=== PATIENT | female | born 1985 | race Caucasian/White ===

== ENCOUNTER 2019-07-04 11:27 | Emergency (ER) | payer MEDICAID, SELFPAY ==
[2019-07-04 11:42] VITALS: BP 80/47; PULSE 90; RESP 16; TEMP 36.3; O2SAT 100
--- NOTE | 2019-07-04 12:37 | ED.SKABFB ---
HPI - Skin/Abscess/Foreign Bdy General Chief complaint: Skin/Abscess/Foreign Body Stated complaint: Cat Bite Time Seen by Provider: 07/04/19 12:37 Source: patient, family and RN notes reviewed Mode of arrival: ambulatory Limitations: no limitations History of Present Illness HPI narrative: 34-year-old female who presents to express care with complaints of pain to her right hand due to cat punctures in the web space of her right hand between thumb and index finger with some surrounding redness and swelling around puncture sites, some small scratches also noted to web space between thumb and index finger, no drainage present. Family member accompanies patient today and states they don't know for sure the rabies immunization status of this animal. Patient states that her right hand is painful, was tearful when nursing staff washed wounds with [employer] solution. Patient states that her tetanus is more than 10 year old and patient will require update. Patient has no present fever, chills or sweats. MD complaint: other (cat bite) Onset (ago): day(s) (1) Tetanus up to date: no Location: R hand Severity: moderate Severity scale (1-10): 5 Quality: sharp Pain Consistency: constant Relieving factors: none Exacerbating factors: movement Associated symptoms: denies other symptoms Treatments prior to arrival: none Related Data Home Medications Medication Instructions Recorded Confirmed albuterol sulfate [Ventolin HFA] 2 puff INHALATION Q4-6H 07/04/19 07/06/19 ropinirole 0.5 mg PO TID 07/05/19 07/05/19 Allergies Allergy/AdvReac Type Severity Reaction Status Date / Time No Known Allergies Allergy Verified 07/06/19 16:49 Review of Systems Review of Systems: Narrative: CONSTITUTIONAL: Denies fever, chills, or sweats. EYES: Denies visual changes, redness, or discharge. ENT: Denies rhinorrhea, congestion, sore throat, or otalgia. CARDIOVASCULAR: Denies chest pain, palpitations, or edema. RESPIRATORY: Denies cough or dyspnea. GASTROINTESTINAL: Denies abdominal pain, nausea, vomiting, or diarrhea. GENITOURINARY: Denies dysuria or hematuria. SKIN: Denies rash or itching. Positive for cat bites and scratches to her right hand i web space between thumb and index finger MUSCULOSKELETAL: Denies back pain, joint pain, or myalgia. NEUROLOGIC: Denies headache, numbness, or weakness. PSYCHIATRIC: Denies anxiety or depression. All systems reviewed & are unremarkable except as noted in HPI and below PMFSH Past Medical History Medical History (Updated 07/07/19 @ 17:47 by Zachary Yang MD) Abscess of hand, right (~06/2019) Due to cat bite. S/P I&D. Asthma Human immunodeficiency virus Diagnosed in 2005. Restless leg syndrome Surgical History Surgical History (Updated 07/05/19 @ 13:52 by Alize Solorzano PA-C) Status post section Status post hysterectomy Status post tubal ligation Family History Family History Mother Hypertension Father Family history of coronary artery disease Social History Social History Social History: The patient lives in [place]. Her boyfriend has recently moved in. She has a 9-year-old and 13-year-old at home. She works at [employer], and she was just offered a job at [employer] working as an [employer]. She designates her mother, Bonnie Cantrell, as her surrogate decision maker and she wishes to be a full code. She drinks alcohol about 1 time a week, up to 1 bottle of wine. She Will smokes socially when drinking. She has a history of crack cocaine abuse and has been clean for about 12 years. She denies history of IV drug use. Spiritual care concerns: No Agree to blood products: No Exam Narrative: Exam Narrative: GENERAL: Well-appearing, well-nourished, and in no acute distress. HEAD: Normocephalic, atraumatic. EYES: PERRLA and
[2019-07-04] MEDS: TETANUS,DIPHTHERIA,AC PERTUSSIS ADULT 0.5 ML (ADACEL) IM (13:01)
== END 2019-07-04 13:18 | disposition home or self-care (01) ==
PROVIDERS: Emergency Provider Registered Nurse
DX: S61.431A Puncture wound without foreign body of right hand, initial encounter (principal); W55.01XA Bitten by cat, initial encounter; Y93.9 Activity, unspecified; Z23 Encounter for immunization; J45.909 Unspecified asthma, uncomplicated; G25.81 Restless legs syndrome; Z21 Asymptomatic human immunodeficiency virus [HIV] infection status
CPT/HCPCS: 90471; 90715; 99213; G0463

== ENCOUNTER 2019-07-05 09:23 | Inpatient (IN) | payer MEDICAID, SELFPAY ==
--- NOTE | ~2019-07-05 | XR_ITS ---
XR hand RT min 3V DATE: 07/05/2019 09:48 INDICATION: Cat bite. Cellulitis, soft tissue swelling of first and second digits TECHNIQUE: 3 views COMPARISON: None FINDINGS: There is soft tissue swelling of the right hand. No fracture or dislocation, periosteal usman ction or bone destruction. No radiopaque foreign body. IMPRESSION: Soft tissue swelling Reviewed, dictated and finalized at location B. RONMENTAL SAFETY SPECIALIST IMPRESSION: Soft tissue swelling
--- NOTE | 2019-07-05 09:37 | ED.SKABFB ---
HPI - Skin/Abscess/Foreign Bdy General Chief complaint: Skin/Abscess/Foreign Body Stated complaint: Cat bite to left hand Time Seen by Provider: 07/05/19 09:24 Source: patient Mode of arrival: ambulatory Limitations: no limitations History of Present Illness HPI narrative: This is a 34 year old female that presents to the ER for cat bite to right hand sustained 2 nights ago. Reports it was a feral cat in her neighborhood. Reports she was seen at the Urgent care yesterday and started on Augmentin. Reports she has taken two doses of this. Reports worsening of swelling and redness since yesterday which prompted her to be seen. Reports history of HIV and that she has been off of her medications for a couple months. Denies fever or drainage. Related Data Home Medications Medication Instructions Recorded Confirmed albuterol sulfate [Ventolin HFA] 2 puff INHALATION Q4-6H 07/04/19 07/04/19 Allergies Allergy/AdvReac Type Severity Reaction Status Date / Time No Known Allergies Allergy Verified 07/05/19 09:48 Review of Systems Review of Systems: Narrative: CONSTITUTIONAL: Denies fever SKIN: Reports erythema and warmth MUSCULOSKELETAL: Denies joint pain NEUROLOGIC: Denies numbness All systems reviewed & are unremarkable except as noted in HPI and below PMFSH Past Medical History Medical History (Updated 07/05/19 @ 11:32 by Maday Carreon PA-C) History of asthma History of HIV infection Social History Social History (Updated 07/05/19 @ 09:52 by Maday Carreon PA-C) Alcohol intake: current Substance use: never Gender identity (if verbalized by the patient): Female Exam Narrative: Exam Narrative: GENERAL: Well-appearing, well-nourished, and in no acute distress. HEAD: Normocephalic, atraumatic. EYES: EOMI. EXTREMITIES: Normal range of motion. Moderate edema, erythema and warmth of the right hand between the 1st and 2nd metacarpal bones with several small puncture bites in the area SKIN: Warm, dry, no rash. NEURO: No focal deficits. Alert and oriented x3. PSYCH: Normal mood and affect Course Consultations Consultation #1: Spoke with hospitalist about patient work-up who accepts admission Date: 07/05/19 Time: 11:32 Consultation #2: Spoke with Dr. Yang about patient and work-up who will consult. He would like coverage for MRSA to be added on Date: 07/05/19 Time: 11:32 Vital Signs Vital signs: Vital Signs Temperature 97.6 F 07/05/19 09:40 Pulse Rate 99 07/05/19 09:40 Respiratory Rate 18 07/05/19 09:40 Blood Pressure 115/86 07/05/19 09:40 Pulse Oximetry 97 07/05/19 09:40 Temperature 97.6 F 07/05/19 09:40 Pulse Rate 99 07/05/19 09:40 Respiratory Rate 18 07/05/19 09:40 Blood Pressure 115/86 07/05/19 09:40 Pulse Oximetry 97 07/05/19 09:40 MDM - Skin/Abscess/Foreign Bdy MDM Narrative Medical decision making narrative: Patient presents to the ER for cellulitis to right hand after a cat bite 2 nights ago. Patient is afebrile and nontoxic appearing. Moderate amount of erythema and edema to the right hand. She was updated on tetanus yesterday. She was also started on Augmentin without improvement. Patient's labs significant for mild elevation of inflammatory markers. Right hand x-ray shows soft tissue swelling. Due to patient's history of untreated HIV, she will be at risk for worsening infection. I think that it would be heaton to admit for IV antibiotics. Spoke with hospitalist about patient and work-up who accepts admission. Spoke with Dr. Yang who will consult. Currently trying to get a hold of infectious disease for consult as well Lab Data Attestation: I reviewed the patient's lab results. Result diagrams: 07/05/19 09:53 Labs: Lab Results 07/05/19 07/05/19 Range/Units 09:53 09:53 WBC 5.4 (4.5-10.0) K/mm3 RBC 4.17 L (4.2-5.4) M/mm3 Hgb 12.5 (12.0-15.0) g/dL Hct 35.7 L (37.0-47.0) % MCV 85.6 (80-100) fl MCH 30.0 (26-
[2019-07-05 09:40] VITALS: BP 115/86; PULSE 99; RESP 18; TEMP 36.4; O2SAT 97
[2019-07-05] MEDS: KETOROLAC 30 MG/ML VIAL (*BKC) IV PUSH (10:01)
[2019-07-05] MEDS: AMPICILLIN SULB 3 GM/NS 100 ML 3 GM/100 ML VIAL IVPB ×3 (10:03→23:47)
[2019-07-05 10:18] LABS: Basophils Percent Auto 0.4 % (0.2-1.2); Eosinophils Absolute Auto 0.2 K/mm3 (0-0.3); Eosinophils Percent Auto 3.5 % (0-4.4); Hematocrit 35.7 % (37.0-47.0); Hemoglobin 12.5 g/dL (12.0-15.0); Immature Granulocyte Absolute 0.01 K/mm3 (0.00-0.031); Immature Granulocyte Percent A 0.2 % (0-0.5); Lymphocytes Percent Auto 16.6 % (18.3-44.2); Mean Corpuscular Volume 85.6 fl (80-100); Mean Platelet Volume 9.9 fl (7.4-10.4); Monocytes Absolute Auto 0.4 K/mm3 (0.1-0.6); Monocytes Percent Auto 6.5 % (2.6-8.5); Neutrophils Absolute Auto 3.9 K/mm3 (1.3-6.7); Neutrophils Percent Auto 72.8 % (45.5-73.1); Platelet Count Result 151 k/mm3 (150-375); Red Blood Count 4.17 M/mm3 (4.2-5.4); Red Cell Distribution Width 11.2 % (11.5-14.5); White Blood Count 5.4 K/mm3 (4.5-10.0)
[2019-07-05 10:35] LABS: CRP 1.4 mg/dL (<1.0)
[2019-07-05 10:57] LABS: Erythrocyte Sedimentation Rate 41 mm/hr (0-20)
[2019-07-05 11:39] LABS: Alanine Aminotransferase 17 U/L (4-35); Albumin Level 4.1 g/dL (3.5-5.1); Alkaline Phosphatase 100 U/L (38-126); Aspartate Amino Transferase 23 U/L (14-36); Bilirubin,Total 0.4 mg/dL (0.2-1.3); Blood Urea Nitrogen 12 mg/dL (7-17); Calcium 9.2 mg/dL (8.4-10.2); Carbon Dioxide 24 mmol/L (22-30); Chloride 98 mmol/L (98-107); Estimated CRCL calculation 103 ml/min; Estimated Glomerular Filt Rate > 60; Glucose 97 mg/dL (65-105); Potassium 3.2 mmol/L (3.4-5.0); Sodium 138 mmol/L (137-145)
[2019-07-05 11:48] VITALS: BP 117/86; PULSE 80; RESP 18; O2SAT 99
[2019-07-05] MEDS: POTASSIUM CHLORIDE 20 MEQ PACKET (FOR LIQUID) 40 MEQ PO (12:22)
--- NOTE | 2019-07-05 12:35 | ADMGEN ---
This patient, Gayle Coles, was admitted to 3 [facility] Surg Room 307-01. Patient/family oriented to hospital policies and general routines including ID bracelet, bed and alarms, visiting hours, pain management, procedures, bathroom and other care routines, personal items, smoking policy, room service/diet, and visiting hours. Valuables list has been completed. Information on how to activate the Rapid Response Team has been discussed. Patient/Family are encouraged to report perceived risks to care and to ask questions if they do not understand what they are told or what they should do.
--- NOTE | 2019-07-05 12:45 | PM.IMHP ---
H&P: HPI History of Present Illness Chief complaint: Cat bite. Narrative: Gayle Coles is a 34 year old female with HIV, off medications for the last several months due to lapse in insurance, who presented to the emergency department earlier this morning from home for evaluation of a cat bite. Two nights ago, she was bit by a cat that she has had in her home for approximately 1 months time. She was seen at urgent care the following day and was prescribed Augmentin, which she states compliance. She has also been taking ibuprofen ?around the clock? due to tight and throbbing pain in the right hand. Her right hand continues to swell and is now more erythematous and warm, prompting her to come in for evaluation. She has not had a documented fever. Her appetite has been good and she denies nausea and vomiting. Review of Systems Review of Systems: Narrative: Twelve systems were reviewed with pertinent positives and negatives as per HPI. She has sweats, but goes on to state that she is hot a lot of the time. She has not had fever or chills. She reports year-round allergies, and chronic sinus issues for which she will occasionally use Nasonex. She has heartburn frequently for which she takes Tums. She has a Ventolin inhaler at home which she uses maybe every other day. Occasional nighttime symptoms. Except as documented, all other systems were reviewed and are negative. [facility] Past Medical History Medical History (Updated 07/05/19 @ 13:56 by Alize Solorzano PA-C) Asthma Human immunodeficiency virus Diagnosed in 2005. Restless leg syndrome Surgical History Surgical History (Updated 07/05/19 @ 13:52 by Alize Solorzano PA-C) Status post section Status post hysterectomy Status post tubal ligation Family History Family History Mother Hypertension Diabetes mellitus Father Family history of coronary artery disease Social History Social History (Updated 07/05/19 @ 13:54 by Alize Solorzano PA-C) Social History: The patient lives in [place]. Her boyfriend has recently moved in. She has a 9-year-old and 13-year-old at home. 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 She designates her mother, Bonnie Cantrell, as her surrogate decision maker and she wishes to be a full code. She drinks alcohol about 1 time a week, up to 1 bottle of wine. She Will smokes socially when drinking. She has a history of crack cocaine abuse and has been clean for about 12 years. She denies history of IV drug use. Spiritual care concerns: No Agree to blood products: No Meds Home Medications and Allergies Home Medications Medication Instructions Recorded Confirmed Type albuterol sulfate [Ventolin HFA] 2 puff INHALATION Q4-6H 07/04/19 07/05/19 History amoxicillin-pot clavulanate 1 tablet PO Q12H #20 tablet 07/04/19 07/05/19 Rx [Augmentin] ropinirole 0.5 mg PO TID 07/05/19 07/05/19 History Allergies Allergy/AdvReac Type Severity Reaction Status Date / Time No Known Allergies Allergy Verified 07/05/19 09:48 Vital Signs Vital Signs - 24 hr 07/05/19 09:40 07/05/19 11:48 Temperature 97.6 F Pulse Rate 99 80 Respiratory Rate 18 18 Blood Pressure 115/86 117/86 Pulse Oximetry 97 99 Exam Narrative: Exam Narrative: General: A well-developed, well-nourished female sitting up in bed no acute distress. HEENT: Normocephalic, atraumatic. PERRL, EOMI. Sclerae anicteric. Oral mucosa moist. Neck: Supple. Respiratory: Lungs are clear to auscultation bilaterally. Cardiovascular: Regular rate and rhythm with S1-S2. Gastrointestinal: Abdomen is soft, nontender, and nondistended with positive bowel sounds. Skin: Warm and dry. Right hand is edematous and erythematous surrounding several bite [place], mainly on the radial aspect of the pal
[2019-07-05 12:47] VITALS: BMI 28.5
--- NOTE | 2019-07-05 13:06 | WPDINFPN2 ---
Progress Note: A&P Assessment and Plan (1) Cellulitis: Qualifiers: Laterality: right Site of cellulitis: extremity Site of cellulitis of extremity: upper extremity Qualified Code(s): L03.113 - Cellulitis of right upper limb Code(s): L03.90 - Cellulitis, unspecified Status: Acute Assessment and Plan: 1. Cat bite cellulitis 2. HIV infection without AIDS REC AmpSulbactam and Vanc #1. Outpatient resumption of antiretrovirals (Leonefsey) once resource found for payment, I asked her to re-connect with [facility] ([facility]) for assistance. Subjective Date/time seen: 07/05/19 13:06 Objective Data Vital Signs Vital Signs: Vital Signs - 24 hr 07/05/19 09:40 07/05/19 11:48 Temperature 36.4 C Pulse Rate 99 80 Respiratory Rate 18 18 Blood Pressure 115/86 117/86 Pulse Oximetry 97 99 Intake/Output Intake/Output: Intake & Output 07/02/19 07/03/19 07/04/19 07/05/19 23:59 23:59 23:59 23:59 Intake Total 100 Balance 100 Meds/Results Medications: Active Medications Generic Name Dose Route Start Last Admin Trade Name Freq PRN Reason Stop Dose Admin Ampicillin Sodium/Sulbactam Sodium 3 gm in 100 mls @ 200 mls/hr 07/05/19 17:00 Unasyn 3 Gm/Ns 100 Ml IVPB Q6HR [facility] Vancomycin HCl 1,000 mg in 250 mls @ 250 mls/hr 07/06/19 00:00 Vancomycin 1,000 Mg/D5w 250 Ml IVPB Q12H [facility] Vancomycin HCl 1 each 07/05/19 11:30 Vancomycin Pharmacist To Dose IVPB PER PROTOCOL [facility] Radiology Results: ITS Impressions Hand X-Ray 07/05/19 09:49 IMPRESSION: Soft tissue swelling Labs Labs: Laboratory Results - last 24 hr 07/05/19 07/05/19 07/05/19 09:53 09:53 09:54 WBC 5.4 RBC 4.17 L Hgb 12.5 Hct 35.7 L MCV 85.6 MCH 30.0 MCHC 35.0 RDW 11.2 L Plt Count 151 MPV 9.9 Immature Gran % (Auto) 0.2 Neut % (Auto) 72.8 Lymph % (Auto) 16.6 L [place] % (Auto) 6.5 Eos % (Auto) 3.5 Baso % (Auto) 0.4 Lymph # (Auto) 0.90 [place] # (Auto) 0.4 Eos # (Auto) 0.2 Baso # (Auto) 0.0 Abs Immat Gran (auto) 0.01 Absolute Neuts (auto) 3.9 Absolute Nucleated RBC 0.0 Nucleated RBC % 0.0 ESR 41 H Sodium 138 Potassium 3.2 L Chloride 98 Carbon Dioxide 24 BUN 12 Creatinine 0.60 L Estim Creat Clear Calc 103 Estimated GFR > 60 Glucose 97 Calcium 9.2 Total Bilirubin 0.4 AST 23 ALT 17 Alkaline Phosphatase 100 C-Reactive Protein 1.4 H Total Protein 9.0 H Albumin 4.1
[2019-07-05 14:00] VITALS: BP 152/99; PULSE 96; RESP 16; TEMP 36.2; O2SAT 100
[2019-07-05] MEDS: ACETAMINOPHEN 325 MG TABLET 650 MG PO (14:47)
--- NOTE | 2019-07-05 15:40 | WPDCN ---
Assessment and Plan Additional Plan Her current acute problem appears to be cellulitis of the right hand due to cat bite punctures. I believe she is appropriately treated at this time with the IV antibiotics Unasyn and vancomycin. It does not appear that she needs surgical intervention. I am pleased to see Dr. lamar has been consulted due to her immune compromised condition. I will round on her tomorrow. We can feed her today and make her NPO after midnight. HPI Data of Consult Date/Time: 07/05/19 15:40 Requesting Physician: Blas Virgen MD Primary Care Provider: UNKNOWN,DOCTOR Consult Narrative Reason for consult: Infected cat bite right hand Narrative: Gayle Coles is a 34 year old female admitted today with worsening of redness, swelling and pain in her right hand after her cat bit her on the hand 2 times 2 days ago. She did go to express Care the following day and was started on Augmentin. She says she had taken 2 doses of that. She says today her hand is worse than it was yesterday. She has been started on Unasyn and vancomycin this admission. She received a Tdap yesterday in the emergency room. Her white count was 5.4. Her lymphocyte count was low at 16.6 and her sed rate was 41. She said she had not had a fever but she did feel hot a lot lately PMFSH Past Medical History Medical History Asthma Human immunodeficiency virus Diagnosed in 2005. Restless leg syndrome Surgical History Surgical History (Updated 07/05/19 @ 13:52 by Alize Solorzano PA-C) Status post section Status post hysterectomy Status post tubal ligation Family History Family History Mother Hypertension Diabetes mellitus Father Family history of coronary artery disease Social History Social History Social History: The patient lives in [place]. Her boyfriend has recently moved in. She has a 9-year-old and 13-year-old at home. 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 She designates her mother, Bonnie Cantrell, as her surrogate decision maker and she wishes to be a full code. She drinks alcohol about 1 time a week, up to 1 bottle of wine. She Will smokes socially when drinking. She has a history of crack cocaine abuse and has been clean for about 12 years. She denies history of IV drug use. Spiritual care concerns: No Agree to blood products: No Meds Home Medications and Allergies Home Medications Medication Instructions Recorded Confirmed Type albuterol sulfate [Ventolin HFA] 2 puff INHALATION Q4-6H 07/04/19 07/05/19 History amoxicillin-pot clavulanate 1 tablet PO Q12H #20 tablet 07/04/19 07/05/19 Rx [Augmentin] ropinirole 0.5 mg PO TID 07/05/19 07/05/19 History Allergies Allergy/AdvReac Type Severity Reaction Status Date / Time No Known Allergies Allergy Verified 07/05/19 09:48 Vital Signs Vital Signs - 24 hr 07/05/19 09:40 07/05/19 11:48 Temperature 36.4 C Pulse Rate 99 80 Respiratory Rate 18 18 Blood Pressure 115/86 117/86 Pulse Oximetry 97 99 Exam Const: Other: Patient is pleasant, alert and anxious to talk about her condition. She would seem to be generally healthy. She is guarding her right hand. Extrem: Other: Her right hand is moderately swollen. There is mild erythema over the dorsum.. She is most tender in the area of the thenar mass and 1st webspace on the palmar side. There is no drainage. There is no lymphangitis. She is able to flex and extend the index finger well and without pain. The index finger is not red. She also tolerates passive extension of the index finger. There is no mottling and no blisters. She is able to flex and extend the thumb but the thenar mass is involve
[2019-07-05] MEDS: ONDANSETRON INJ 4 MG/2 ML VIAL IV PUSH (18:59)
[2019-07-05 22:00] VITALS: BP 129/73; PULSE 80; RESP 16; TEMP 36.6; O2SAT 99
[2019-07-06] VITALS (12 sets, daily range): BP systolic 84–136; BP diastolic 45–91; PULSE 77–86; RESP 11–20; TEMP 36.3–37.1; O2SAT 93–100
[2019-07-06] MEDS: AMPICILLIN SULB 3 GM/NS 100 ML 3 GM/100 ML VIAL IVPB ×3 (05:48→20:24)
--- NOTE | 2019-07-06 06:18 | CONS_ITS ---
DATE OF CONSULTATION: REASON FOR CONSULTATION: Cat bite cellulitis. HISTORY OF PRESENT ILLNESS: The patient is a 34-year-old female who has had HIV infection for some 13 years with excellent control in the past. However, in the last 2 months, she has been without medication due to insurance non-reimbursement. She was on Atripla in the past, most recently Odefsey. She was in her usual state of health until 2 days before admission when she attempted to pet a feral cat, which then promptly bit her on the interdigital space between the first and 2nd digits of the right hand. There is also an injury to the palm proximally that she thinks was a bite also. She used peroxide and water for cleaning. One day before admission when she woke, she had pain in the same area. She went to Urgent Care and was started on Augmentin 875 mg b.i.d. However, today she had progressive pain and swelling in the same area along with elsewhere in the hand, and she was seen in the emergency room here. She was admitted and has been started now on ampicillin, sulbactam, and vancomycin. No fever, chills, sweats, previous injuries, previous surgeries, vascular compromise nor proximal pain. ALLERGIES: NONE KNOWN. PRESENT MEDICATIONS: No chronic medications otherwise. HABITS: She will smoke 1-2 cigarettes once a week and the same amount of alcohol. No marijuana and no illegal drugs. PAST MEDICAL HISTORY: Asthma. Otherwise negative. FAMILY HISTORY: Hypertension, diabetes, CAD. SOCIAL HISTORY: She works. Lives locally. . REVIEW OF SYSTEMS: Constitutional, skin, musculoskeletal, GI, respiratory otherwise negative. PHYSICAL EXAMINATION: GENERAL: This is a young female, who appears her actual age. No acute distress. VITAL SIGNS: Afebrile, 117/86, 80, 18, 99%. SKIN: No generalized rashes. Warm and dry. EENT: The pupils are equal and round. No conjunctival injection. No icterus. NECK: Without meningismus. LUNGS: Clear to auscultation and percussion. Excellent air entry. CARDIAC: Regular rate and rhythm. No murmur, gallop, or rub. Radial pulses 2+. ABDOMEN: Nontender, soft, nondistended. EXTREMITIES: No lower extremity edema, clubbing, or cyanosis. Over the aforementioned area of the right hand, she has edema, several superficial puncture wounds which are crusted and erythema and tenderness as well. She has limited range of motion of the first and 2nd digits. Normal range of motion, 4th and 5th. She has no lymphangitis. LABORATORY DATA: White count 5.4, hemoglobin 12.5, platelets are 151. She has a total lymphocyte count of 900. Potassium 3.2, creatinine 0.6, otherwise chemistry panel is normal. CRP 1.4. Protein is high at 9.0, typical of HIV infection. RADIOLOGY: Hand x-ray performed today, soft tissue swelling, otherwise normal. ASSESSMENT: 1. Cellulitis of the right hand after a cat bite, Pasteurella, other anaerobes or mammalian oral gretchen suspected. The patient's own cutaneous gretchen also potential pathogen, perhaps including methicillin-resistant Staphylococcus aureus. 2. Human immunodeficiency virus infection without acquired immune deficiency syndrome. Unable to take medication. I do not think she has clinically significant immunocompromise at the present time. RECOMMENDATIONS: 1. 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 2. Agree with present antibiotics day 1. 3. Dr. Yang to see as well for any needed surgical intervention. Thank you very much for asking me to see her. SERGIO HINES M.D. TEMPLATE STORAGE CLERK
[2019-07-06 06:21] LABS: Basophils Percent Auto 0.5 % (0.2-1.2); Eosinophils Absolute Auto 0.3 K/mm3 (0-0.3); Hematocrit 34.4 % (37.0-47.0); Hemoglobin 11.6 g/dL (12.0-15.0); Immature Granulocyte Absolute 0.01 K/mm3 (0.00-0.031); Immature Granulocyte Percent A 0.3 % (0-0.5); Lymphocytes Absolute Auto 0.91 K/mm3 (0.9-3.2); Lymphocytes Percent Auto 24.4 % (18.3-44.2); Mean Corpuscular HGB Conc 33.7 g/dl (32-36); Mean Corpuscular Hemoglobin 29.6 pg (26-34); Mean Corpuscular Volume 87.8 fl (80-100); Mean Platelet Volume 10.6 fl (7.4-10.4); Monocytes Absolute Auto 0.3 K/mm3 (0.1-0.6); Monocytes Percent Auto 6.7 % (2.6-8.5); Neutrophils Absolute Auto 2.3 K/mm3 (1.3-6.7); Neutrophils Percent Auto 61.1 % (45.5-73.1); Platelet Count Result 132 k/mm3 (150-375); Red Blood Count 3.92 M/mm3 (4.2-5.4); Red Cell Distribution Width 11.4 % (11.5-14.5); White Blood Count 3.7 K/mm3 (4.5-10.0)
[2019-07-06 06:37] LABS: Blood Urea Nitrogen 8 mg/dL (7-17); Calcium 8.2 mg/dL (8.4-10.2); Carbon Dioxide 25 mmol/L (22-30); Chloride 104 mmol/L (98-107); Estimated CRCL calculation 124 ml/min; Estimated Glomerular Filt Rate > 60; Glucose 101 mg/dL (65-105); Magnesium 1.6 mg/dL (1.6-2.3); Potassium 3.8 mmol/L (3.4-5.0); Sodium 137 mmol/L (137-145)
--- NOTE | 2019-07-06 08:37 | WPDPN ---
Progress Note: A&P Additional Plan May be improving. Will keep NPO and reevaluate around Noon. Exam Narrative: Exam Narrative: She has just woken up and was moving slowly. May not have had hand elevated all night. Very little erythema except locally in the palmar first web space in the vacinity lof the puncture wounds. Tolerates passive extension of thumb and index. ( Likely no tenosynovitis.) Moves all digits sluggishly this morning. No purulent drainage. WBC 3.7. Objective Data Vital Signs Vital Signs: Vital Signs - 24 hr 07/05/19 09:40 07/05/19 11:48 07/05/19 14:00 Temperature 36.4 C 36.2 C L Pulse Rate 99 80 96 Respiratory Rate 18 18 16 Blood Pressure 115/86 117/86 152/99 H Pulse Oximetry 97 99 100 07/05/19 22:00 07/06/19 06:00 Temperature 36.6 C 36.6 C Pulse Rate 80 77 Respiratory Rate 16 20 Blood Pressure 129/73 136/76 Pulse Oximetry 99 98 Intake/Output Intake/Output: Intake & Output 07/03/19 07/04/19 07/05/19 07/06/19 23:59 23:59 23:59 23:59 Intake Total 970 700 Output Total 300 600 Balance 670 100 Meds/Results Medications: Active Medications Generic Name Dose Route Start Last Admin Trade Name Freq PRN Reason Stop Dose Admin Acetaminophen 650 mg 07/05/19 14:01 07/05/19 14:47 Tylenol Tablet PO 650 mg Q6H PRN Administration Mild Pain (1-3) or Fever Hydrocodone Bitart/Acetaminophen 1 tab 07/05/19 22:10 07/06/19 08:16 [place] 5-325 Mg PO 1 tab Q6H PRN Administration Pain Rated 4-6 Albuterol 2 puff 07/05/19 14:55 Proventil Hfa INHALATION Q4-6H PRN Shortness Of Breath Or Wheezing Ampicillin Sodium/Sulbactam Sodium 3 gm in 100 mls @ 200 mls/hr 07/05/19 17:00 07/06/19 06:18 Unasyn 3 Gm/Ns 100 Ml IVPB Infused Q6HR LEXIE Infusion Vancomycin HCl 1,000 mg in 250 mls @ 250 mls/hr 07/06/19 00:00 07/06/19 01:34 Vancomycin 1,000 Mg/D5w 250 Ml IVPB Infused Q12H LEXIE Infusion Ondansetron HCl 4 mg 07/05/19 18:17 07/05/19 18:59 Zofran Inj IV PUSH 4 mg Q6H PRN Administration Nausea And Vomiting Ropinirole HCl 0.5 mg 07/05/19 17:00 07/06/19 08:14 Ropinirole Hcl PO 0.5 mg TID LEXIE Administration Radiology Results: ITS Impressions Hand X-Ray 07/05/19 09:49 IMPRESSION: Soft tissue swelling Labs Labs: Laboratory Results - last 24 hr 07/05/19 07/05/19 07/05/19 09:53 09:53 09:54 WBC 5.4 RBC 4.17 L Hgb 12.5 Hct 35.7 L MCV 85.6 MCH 30.0 MCHC 35.0 RDW 11.2 L Plt Count 151 MPV 9.9 Immature Gran % (Auto) 0.2 Neut % (Auto) 72.8 Lymph % (Auto) 16.6 L [place] % (Auto) 6.5 Eos % (Auto) 3.5 Baso % (Auto) 0.4 Lymph # (Auto) 0.90 [place] # (Auto) 0.4 Eos # (Auto) 0.2 Baso # (Auto) 0.0 Abs Immat Gran (auto) 0.01 Absolute Neuts (auto) 3.9 Absolute Nucleated RBC 0.0 Nucleated RBC % 0.0 ESR 41 H Sodium 138 Potassium 3.2 L Chloride 98 Carbon Dioxide 24 BUN 12 Creatinine 0.60 L Estim Creat Clear Calc 103 Estimated GFR > 60 Glucose 97 Calcium 9.2 Magnesium Total Bilirubin 0.4 AST 23 ALT 17 Alkaline Phosphatase 100 C-Reactive Protein 1.4 H Total Protein 9.0 H Albumin 4.1 07/06/19 07/06/19 05:56 05:56 WBC 3.7 L RBC 3.92 L Hgb 11.6 L Hct 34.4 L MCV 87.8 MCH 29.6 MCHC 33.7 RDW 11.4 L Plt Count 132 L MPV 10.6 H Immature Gran % (Auto) 0.3 Neut % (Auto) 61.1 Lymph % (Auto) 24.4 [place] % (Auto) 6.7 Eos % (Auto) 7.0 H Baso % (Auto) 0.5 Lymph # (Auto) 0.91 [place] # (Auto) 0.3 Eos # (Auto) 0.3 Baso # (Auto) 0.0 Abs Immat Gran (auto) 0.01 Absolute Neuts (auto) 2.3 Absolute Nucleated RBC 0.0 Nucleated RBC % 0.0 ESR Sodium 137 Potassium 3.8 Chloride 104 Carbon Dioxide 25 BUN 8 Creatinine 0.50 L Estim Creat Clear Calc 124 Estimated GFR > 60 Glucose 101 Calcium 8.2 L Magnesi
[2019-07-06] MEDS: ONDANSETRON INJ 4 MG/2 ML VIAL IV PUSH ×3 (09:31→20:22)
--- NOTE | 2019-07-06 13:00 | P.PN_ITS ---
Progress Note: A&P Additional Plan Have scheduled time in the OR this evening for I&D of right hand. Explained the pros and cons. Worst complications would probably be from general anesthesia, but she might also sustain a cutaneous nerve injury or an unsightly scar from the incision. Wound will be left open. She gives her consent. Objective Data Vital Signs Vital Signs: Vital Signs - 24 hr 07/05/19 14:00 07/05/19 22:00 07/06/19 06:00 Temperature 36.2 C L 36.6 C 36.6 C Pulse Rate 96 80 77 Respiratory Rate 16 16 20 Blood Pressure 152/99 H 129/73 136/76 Pulse Oximetry 100 99 98 Intake/Output Intake/Output: Intake & Output 07/03/19 07/04/19 07/05/19 07/06/19 23:59 23:59 23:59 23:59 Intake Total 970 700 Output Total 300 600 Balance 670 100 Meds/Results Medications: Active Medications Generic Name Dose Route Start Last Admin Trade Name Freq PRN Reason Stop Dose Admin Acetaminophen 650 mg 07/05/19 14:01 07/05/19 14:47 Tylenol Tablet PO 650 mg Q6H PRN Administration Mild Pain (1-3) or Fever Hydrocodone Bitart/Acetaminophen 1 tab 07/05/19 22:10 07/06/19 08:16 [place] 5-325 Mg PO 1 tab Q6H PRN Administration Pain Rated 4-6 Albuterol 2 puff 07/05/19 14:55 Proventil Hfa INHALATION Q4-6H PRN Shortness Of Breath Or Wheezing Ampicillin Sodium/Sulbactam Sodium 3 gm in 100 mls @ 200 mls/hr 07/05/19 17:00 07/06/19 06:18 Unasyn 3 Gm/Ns 100 Ml IVPB Infused Q6HR LEXIE Infusion Vancomycin HCl 1,000 mg in 250 mls @ 250 mls/hr 07/06/19 00:00 07/06/19 01:34 Vancomycin 1,000 Mg/D5w 250 Ml IVPB Infused Q12H LEXIE Infusion Ondansetron HCl 4 mg 07/05/19 18:17 07/06/19 09:31 Zofran Inj IV PUSH 4 mg Q6H PRN Administration Nausea And Vomiting Ropinirole HCl 0.5 mg 07/05/19 17:00 07/06/19 08:14 Ropinirole Hcl PO 0.5 mg TID LEXIE Administration Radiology Results: ITS Impressions Hand X-Ray 07/05/19 09:49 IMPRESSION: Soft tissue swelling Labs Labs: Laboratory Results - last 24 hr 07/06/19 07/06/19 05:56 05:56 WBC 3.7 L RBC 3.92 L Hgb 11.6 L Hct 34.4 L MCV 87.8 MCH 29.6 MCHC 33.7 RDW 11.4 L Plt Count 132 L MPV 10.6 H Immature Gran % (Auto) 0.3 Neut % (Auto) 61.1 Lymph % (Auto) 24.4 [place] % (Auto) 6.7 Eos % (Auto) 7.0 H Baso % (Auto) 0.5 Lymph # (Auto) 0.91 [place] # (Auto) 0.3 Eos # (Auto) 0.3 Baso # (Auto) 0.0 Abs Immat Gran (auto) 0.01 Absolute Neuts (auto) 2.3 Absolute Nucleated RBC 0.0 Nucleated RBC % 0.0 Sodium 137 Potassium 3.8 Chloride 104 Carbon Dioxide 25 BUN 8 Creatinine 0.50 L Estim Creat Clear Calc 124 Estimated GFR > 60 Glucose 101 Calcium 8.2 L Magnesium 1.6
--- NOTE | 2019-07-06 15:20 | PM.IMPN ---
Progress Note: A&P Assessment and Plan (1) Cellulitis of right hand: Code(s): L03.113 - Cellulitis of right upper limb Status: Acute Assessment and Plan: -----continue vancomycin and Unasyn. I believe Dr. Yang is taking her for surgery later today. Patient is neurovascularly intact and does not have any systemic symptoms at this time. White blood cell count slightly decreased but could be due to her chronic HIV. (2) Hypokalemia: Code(s): E87.6 - Hypokalemia Status: Acute Assessment and Plan: -----resolved (3) Human immunodeficiency virus: Code(s): B20 - Human immunodeficiency virus [HIV] disease Status: Acute Assessment and Plan: ----- She has been off her medications for about 2 months due to lapse in insurance. She was encouraged to get in touch with [facility] AIDS project for help. Dr. lamar has seen her and his note was reviewed. Time Spent With Patient Time with patient: 25 - 35 minutes Subjective Date/time seen: 07/06/19 15:20 Interval history: Pt is a 34-year-old female here cellulitis due to cat bite on her right hand. Patient was seen today and states that the infection seems to be worsening and her hand is more swollen than it was earlier today. She has not had any fevers or chills since being here in the hospital but she feels weak. She is not eating or drinking because she has surgery later today. She has been having some nausea. pt denies vomiting, fevers, chills, constipation, diarrhea, chest pain, sob, or abdominal pain. Review of Systems Review of Systems: All systems reviewed & are unremarkable except as noted in HPI and below Exam Narrative: Exam Narrative: General: Well developed well nourished patient resting comfortably in bed in NAD HEENT: normocephalic Neck: supple Neuro: Alert and oriented x4 CV:RRR Resp:CTA Abd: Soft, non distended. No pain to palpation. Positive bowel sounds Extremities: Right hand erythematous and swollen. Radial pulses intact. No swelling, erythema, or pain to palpation to the lower extremities. Objective Data Vital Signs Vital Signs: Vital Signs - 24 hr 07/05/19 22:00 07/06/19 06:00 Temperature 97.8 F 97.9 F Pulse Rate 80 77 Respiratory Rate 16 20 Blood Pressure 129/73 136/76 Pulse Oximetry 99 98 Intake/Output Intake/Output: Intake & Output 07/03/19 07/04/19 07/05/19 07/06/19 23:59 23:59 23:59 23:59 Intake Total 970 800 Output Total 300 600 Balance 670 200 Meds/Results Medications: Active Medications Generic Name Dose Route Start Last Admin Trade Name Freq PRN Reason Stop Dose Admin Acetaminophen 650 mg 07/05/19 14:01 07/05/19 14:47 Tylenol Tablet PO 650 mg Q6H PRN Administration Mild Pain (1-3) or Fever Hydrocodone Bitart/Acetaminophen 1 tab 07/05/19 22:10 07/06/19 14:30 [place] 5-325 Mg PO 1 tab Q6H PRN Administration Pain Rated 4-6 Albuterol 2 puff 07/05/19 14:55 Proventil Hfa INHALATION Q4-6H PRN Shortness Of Breath Or Wheezing Ampicillin Sodium/Sulbactam Sodium 3 gm in 100 mls @ 200 mls/hr 07/05/19 17:00 07/06/19 15:00 Unasyn 3 Gm/Ns 100 Ml IVPB Infused Q6HR LEXIE Infusion Vancomycin HCl 1,000 mg in 250 mls @ 250 mls/hr 07/06/19 00:00 07/06/19 15:07 Vancomycin 1,000 Mg/D5w 250 Ml IVPB 250 mls/hr Q12H LEXIE Administration Ondansetron HCl 4 mg 07/05/19 18:17 07/06/19 09:31 Zofran Inj IV PUSH 4 mg Q6H PRN Administration Nausea And Vomiting Ropinirole HCl 0.5 mg 07/05/19 17:00 07/06/19 14:32 Ropinirole Hcl PO 0.5 mg TID LEXIE Administration Radiology Results: ITS Impressions Hand X-Ray 07/05/19 09:49 IMPRESSION: Soft tissue swelling Labs Labs: Laboratory Results - last 24 hr 07/06/19 07/06/19 05:56 05:56 WBC 3.7 L RBC 3.92 L Hgb 11.6 L Hct 34.4 L MCV 87.8 MCH 29.6 MCHC 33.7 RDW 11.4 L Plt Count 132 L MP
--- NOTE | 2019-07-06 15:46 | WPDINFPN2 ---
Progress Note: A&P Assessment and Plan (1) Cellulitis: Qualifiers: Laterality: right Site of cellulitis: extremity Site of cellulitis of extremity: upper extremity Qualified Code(s): L03.113 - Cellulitis of right upper limb Code(s): L03.90 - Cellulitis, unspecified Status: Acute Assessment and Plan: 1. Cat bite cellulitis, stable exam, no systemic infection 2. HIV infection without AIDS 3. Mild eosinophilia, perhaps due to HIV itself (not uncommon) REC AmpSulbactam and Vanc #2. Outpatient resumption of antiretrovirals ([place]) once resource found for payment. Get MRSA screen and stop vanc if screen and intraoperative culture show no MRSA. Subjective Date/time seen: 07/06/19 15:46 Interval history: hand pain and limited ROm still Exam Narrative: Exam Narrative: afebrile Const: General: no acute distress Eyes: General: appearance normal, both eyes and all related structures Resp: Effort & Inspection: normal respiratory effort Auscultation: clear to auscultation bilaterally Cardio: Rate: regular rate Rhythm: regular rhythm Heart sounds: Gallop heart sound present GI: Inspection: non-distended GI Palp: Yes Soft to palpation Skin: General skin exam: normal color Extrem: Right upper extremity: Extremity exam: right hand normal capillary refill, tendon exam abnormal, tenderness, abnormal ROM of finger, warmth, swelling and puncture wound Objective Data Vital Signs Vital Signs: Vital Signs - 24 hr 07/05/19 22:00 07/06/19 06:00 Temperature 36.6 C 36.6 C Pulse Rate 80 77 Respiratory Rate 16 20 Blood Pressure 129/73 136/76 Pulse Oximetry 99 98 Intake/Output Intake/Output: Intake & Output 07/03/19 07/04/19 07/05/19 07/06/19 23:59 23:59 23:59 23:59 Intake Total 970 800 Output Total 300 600 Balance 670 200 Meds/Results Medications: Active Medications Generic Name Dose Route Start Last Admin Trade Name Freq PRN Reason Stop Dose Admin Acetaminophen 650 mg 07/05/19 14:01 07/05/19 14:47 Tylenol Tablet PO 650 mg Q6H PRN Administration Mild Pain (1-3) or Fever Hydrocodone Bitart/Acetaminophen 1 tab 07/05/19 22:10 07/06/19 14:30 [place] 5-325 Mg PO 1 tab Q6H PRN Administration Pain Rated 4-6 Albuterol 2 puff 07/05/19 14:55 Proventil Hfa INHALATION Q4-6H PRN Shortness Of Breath Or Wheezing Ampicillin Sodium/Sulbactam Sodium 3 gm in 100 mls @ 200 mls/hr 07/05/19 17:00 07/06/19 15:00 Unasyn 3 Gm/Ns 100 Ml IVPB Infused Q6HR LEXIE Infusion Vancomycin HCl 1,000 mg in 250 mls @ 250 mls/hr 07/06/19 00:00 07/06/19 15:07 Vancomycin 1,000 Mg/D5w 250 Ml IVPB 250 mls/hr Q12H LEXIE Administration Ondansetron HCl 4 mg 07/05/19 18:17 07/06/19 09:31 Zofran Inj IV PUSH 4 mg Q6H PRN Administration Nausea And Vomiting Ropinirole HCl 0.5 mg 07/05/19 17:00 07/06/19 14:32 Ropinirole Hcl PO 0.5 mg TID LEXIE Administration Radiology Results: ITS Impressions Hand X-Ray 07/05/19 09:49 IMPRESSION: Soft tissue swelling Labs Labs: Laboratory Results - last 24 hr 07/06/19 07/06/19 05:56 05:56 WBC 3.7 L RBC 3.92 L Hgb 11.6 L Hct 34.4 L MCV 87.8 MCH 29.6 MCHC 33.7 RDW 11.4 L Plt Count 132 L MPV 10.6 H Immature Gran % (Auto) 0.3 Neut % (Auto) 61.1 Lymph % (Auto) 24.4 [place] % (Auto) 6.7 Eos % (Auto) 7.0 H Baso % (Auto) 0.5 Lymph # (Auto) 0.91 [place] # (Auto) 0.3 Eos # (Auto) 0.3 Baso # (Auto) 0.0 Abs Immat Gran (auto) 0.01 Absolute Neuts (auto) 2.3 Absolute Nucleated RBC 0.0 Nucleated RBC % 0.0 Sodium 137 Potassium 3.8 Chloride 104 Carbon Dioxide 25 BUN 8 Creatinine 0.50 L Estim Creat Clear Calc 124 Estimated GFR > 60 Glucose 101 Calcium 8.2 L Magnesium 1.6
--- NOTE | 2019-07-06 16:52 | WPDANESEPPF ---
Anes - Initial Pre Proc Eval Procedure: Operation Date: 07/06/19 17:00 Proposed Procedures p Incision and Drainage abscess right hand - Zachary Yang MD Date/Time: 07/06/19 16:52 Surgeon: Arely Phillips PA-C Pre Op Diagnosis: Cat bite. Patient Data Age: 34 Gender: F Height: 1.57 m Weight: 70.8 kg Last Vital Signs Temp 37.1 C 07/06/19 16:31 Pulse 81 07/06/19 16:31 Resp 14 07/06/19 16:31 BP 122/91 H 07/06/19 16:31 Pulse Ox 99 07/06/19 16:31 Allergies Allergy/AdvReac Type Severity Reaction Status Date / Time No Known Allergies Allergy Verified 07/06/19 16:49 Home Medications Medication Instructions Recorded Confirmed Type albuterol sulfate [Ventolin HFA] 2 puff INHALATION Q4-6H 07/04/19 07/06/19 History amoxicillin-pot clavulanate 1 tablet PO Q12H #20 tablet 07/04/19 07/05/19 Rx [Augmentin] ropinirole 0.5 mg PO TID 07/05/19 07/05/19 History Laboratory Tests 07/06/19 07/06/19 05:56 05:56 WBC 3.7 K/mm3 L K/mm3 (4.5-10.0) RBC 3.92 M/mm3 L M/mm3 (4.2-5.4) Hgb 11.6 g/dL L g/dL (12.0-15.0) Hct 34.4 % L % (37.0-47.0) MCV 87.8 fl fl (80-100) MCH 29.6 pg pg (26-34) MCHC 33.7 g/dl g/dl (32-36) RDW 11.4 % L % (11.5-14.5) Plt Count 132 k/mm3 L k/mm3 (150-375) MPV 10.6 fl H fl (7.4-10.4) Immature Gran % (Auto) 0.3 % % (0-0.5) Neut % (Auto) 61.1 % % (45.5-73.1) Lymph % (Auto) 24.4 % % (18.3-44.2) [place] % (Auto) 6.7 % % (2.6-8.5) Eos % (Auto) 7.0 % H % (0-4.4) Baso % (Auto) 0.5 % % (0.2-1.2) Lymph # (Auto) 0.91 K/mm3 K/mm3 (0.9-3.2) [place] # (Auto) 0.3 K/mm3 K/mm3 (0.1-0.6) Eos # (Auto) 0.3 K/mm3 K/mm3 (0-0.3) Baso # (Auto) 0.0 K/mm3 K/mm3 (0.0-0.1) Abs Immat Gran (auto) 0.01 K/mm3 K/mm3 (0.00-0.031) Absolute Neuts (auto) 2.3 K/mm3 K/mm3 (1.3-6.7) Absolute Nucleated RBC 0.0 K/mm3 K/mm3 (0.0-0.012) Nucleated RBC % 0.0 % % (0.0-0.2) Sodium 137 mmol/L mmol/L (137-145) Potassium 3.8 mmol/L mmol/L (3.4-5.0) Chloride 104 mmol/L mmol/L (98-107) Carbon Dioxide 25 mmol/L mmol/L (22-30) BUN 8 mg/dL mg/dL (7-17) Creatinine 0.50 mg/dL L mg/dL (0.7-1.0) Estim Creat Clear Calc 124 ml/min ml/min Estimated GFR > 60 (59 - ) Glucose 101 mg/dL mg/dL (65-105) Calcium 8.2 mg/dL L mg/dL (8.4-10.2) Magnesium 1.6 mg/dL mg/dL (1.6-2.3) Patient hx anesthesia problems: post op nausea/vomiting Family hx anesthesia problems: none PMFSH Past Medical History Medical History Asthma Human immunodeficiency virus Diagnosed in 2005. Restless leg syndrome Surgical History Surgical History (Updated 07/05/19 @ 13:52 by Alize Solorzano PA-C) Status post section Status post hysterectomy Status post tubal ligation Family History Family History Mother Hypertension Diabetes mellitus Father Family history of coronary artery disease Social History Social History Social History: The patient lives in [place]. Her boyfriend has recently moved in. She has a 9-year-old and 13-year-old at home. She works at [employer], and she was just offered a job at [employer] working as an [employer]. She designates her mother, Bonnie Cantrell, as her surrogate decision maker and she wishes to be a full code. She drinks alcohol about 1 time a week, up to 1 bottle of wine. She Will smokes socially when drinking. She has a history of crack cocaine abuse and has been clean for about 12 years. She denies history of IV drug use. Spiritual care concerns: No Agree to blood products: No Ane
[2019-07-06] MEDS: LACTATED RINGERS 1,000 ML 30 ML IV CONT (17:01)
[2019-07-06] MEDS: SCOPOLAMINE 1.5 MG PATCH TRANSDERM (17:11)
[2019-07-06] MEDS: FAMOTIDINE 20 MG/2 ML VIAL IV PUSH (17:11)
--- NOTE | 2019-07-06 17:30 | PM.OP ---
Procedure Note - Brief Procedure Note - Brief Date of procedure: 07/06/19 Pre-op diagnosis: Cat bite. Abscess of right hand . Post-op diagnosis: same Procedure performed: I&D abscess of right hand Anesthesia: GLMA Surgeon: Zachary Yang MD Automobile Contract Clerk: Marj Asencio Estimated blood loss (mL): 10 Tourniquet time (min): 10 Drains: No Packing: Yes Pathology: yes Complications: No immediate complications Condition: stable Disposition: PACU
[2019-07-06] MEDS: LIDO 1%/EPINEPHRINE 1:100,000 20 ML VIAL 30 ML INFILTRATE (18:08)
--- NOTE | 2019-07-06 18:30 | PM.PROC ---
Procedure Note - Detailed Date of procedure: 07/06/19 Pre-op diagnosis: Cat bite. Post-op diagnosis: other (Abscess of the right hand) Procedure performed: I and D of abscess right hand Description of procedure: The appropriate hand was marked while the patient was in preop. She was taken to the operating room and placed supine on the operating table. She was given general endotracheal anesthesia and the extremity was prepped and draped in usual fashion. The site was carefully examined there was already pus extruding from [address] puncture site. The area of the dorsal hand was anesthetized with 1% lidocaine with epinephrine as a block to the superficial branch of the radial nerve. Some additional anesthetic was placed at the puncture sites. The incision was made through the draining site and zackery pus was identified. This was cultured for aerobes and anaerobes. The 2nd incision was made through 2 adjacent bites more distally at the base of the index finger. Pus was found there as well. We were able to connect these subcutaneously and to a 3rd puncture site more on the palmar surface. The space between these was expanded with the blunt hemostat dissection. Approximately 600 milliliter of saline were washed through all of these. The wound was then dressed with half-inch iodoform gauze placed in each of these wounds. A bulky gauze bandage was applied. The procedure was carried out under tourniquet control at 250 mm until the point were we began to pack the wound. There is no indication septic tenosynovitis. Surgeon: Zachary Yang MD
[2019-07-06 23:59] LABS: Vancomycin Trough 7.1 ug/mL (10.0-20.0)
[2019-07-07] MEDS: AMPICILLIN SULB 3 GM/NS 100 ML 3 GM/100 ML VIAL IVPB ×5 (00:06→23:42)
[2019-07-07 02:14] VITALS: BP 104/76; PULSE 72; RESP 16; TEMP 36.9; O2SAT 97
[2019-07-07 06:00] VITALS: BP 109/68; PULSE 82; RESP 18; TEMP 36.8; O2SAT 97
[2019-07-07 06:29] LABS: Hematocrit 32.8 % (37.0-47.0); Hemoglobin 11.6 g/dL (12.0-15.0); Mean Corpuscular HGB Conc 35.4 g/dl (32-36); Mean Corpuscular Hemoglobin 30.4 pg (26-34); Mean Corpuscular Volume 86.1 fl (80-100); Mean Platelet Volume 9.9 fl (7.4-10.4); Platelet Count Result 118 k/mm3 (150-375); Red Blood Count 3.81 M/mm3 (4.2-5.4); Red Cell Distribution Width 11.1 % (11.5-14.5); White Blood Count 3.7 K/mm3 (4.5-10.0)
[2019-07-07 06:43] LABS: Blood Urea Nitrogen 7 mg/dL (7-17); Calcium 8.3 mg/dL (8.4-10.2); Carbon Dioxide 28 mmol/L (22-30); Chloride 99 mmol/L (98-107); Estimated CRCL calculation 105 ml/min; Estimated Glomerular Filt Rate > 60; Glucose 127 mg/dL (65-105); Potassium 3.4 mmol/L (3.4-5.0); Sodium 137 mmol/L (137-145)
[2019-07-07 10:00] VITALS: BP 96/67; PULSE 85; RESP 18; TEMP 36.6; O2SAT 100
--- NOTE | 2019-07-07 10:06 | WPDANESPN ---
Anes - Prog Note Post-Op Date/Time: 07/07/19 10:06 Cardiovascular status: normal Respiratory status: normal Airway patency: baseline Mental status: baseline Post-Op hydration status: normal Vital Signs: Last Vital Signs Temp 36.8 C 07/07/19 06:00 Pulse 82 07/07/19 06:00 Resp 18 07/07/19 06:00 BP 109/68 07/07/19 06:00 Pulse Ox 97 07/07/19 06:00 I/O: Intake & Output 07/06/19 07/07/19 07/07/19 23:59 07:59 15:59 Intake Total 950 900 240 Output Total 1000 1200 Balance -50 -300 240 Laboratory Tests 07/07/19 06:21 07/07/19 06:21 07/06/19 07/07/19 07/07/19 22:45 06:21 06:21 WBC 3.7 L RBC 3.81 L Hgb 11.6 L Hct 32.8 L MCV 86.1 MCH 30.4 MCHC 35.4 RDW 11.1 L Plt Count 118 L MPV 9.9 Sodium 137 Potassium 3.4 Chloride 99 Carbon Dioxide 28 BUN 7 Creatinine 0.60 L Estim Creat Clear Calc 105 Estimated GFR > 60 Glucose 127 H Calcium 8.3 L Vancomycin Trough 7.1 L Post-procedural complaints: none Patient Feedback: Patient satisfied with anesthetic care.
[2019-07-07] MEDS: MORPHINE SULFATE 2 MG/ML INJ 1 MG IV PUSH (10:20)
--- NOTE | 2019-07-07 15:25 | PM.IMPN ---
Progress Note: A&P Assessment and Plan (1) Cellulitis of right hand: Code(s): L03.113 - Cellulitis of right upper limb Status: Acute Assessment and Plan: -----continue vancomycin and Unasyn. Postop day 1 of I&D. Patient is neurovascularly intact and does not have any systemic symptoms at this time. White blood cell count slightly decreased but could be due to her chronic HIV. (2) Hypokalemia: Code(s): E87.6 - Hypokalemia Status: Acute Assessment and Plan: -----resolved (3) Human immunodeficiency virus: Code(s): B20 - Human immunodeficiency virus [HIV] disease Status: Acute Assessment and Plan: ----- She has been off her medications for about 2 months due to lapse in insurance. She was encouraged to get in touch with [facility] AIDS project for help. Dr. lamar has seen her and his note was reviewed. Subjective Date/time seen: 07/07/19 15:25 Interval history: Pt is a 34-year-old female here cellulitis due to cat bite on her right hand. Patient was seen today and states her pain is a 1/10 see my exam. She says she has some nausea when she was sitting up but other than that is doing okay. She had some pain earlier and says the [place] helps better than the oxycodone or the morphine. Pt denies vomiting, fevers, chills, constipation, diarrhea, chest pain, sob, or abdominal pain. Exam Narrative: Exam Narrative: General: Well developed well nourished patient resting comfortably in bed in [facility] HEENT: normocephalic Neck: supple Neuro: Alert and oriented x4 CV:RRR Resp:CTA Abd: Soft, non distended. No pain to palpation. Positive bowel sounds Extremities: Right hand unwrapped and incision site examined. Iodoform gauze in place. Less swelling and erythema compared to yesterday. Radial pulses intact. No excessive erythema or discharge coming from the wounds. No swelling, erythema, or pain to palpation to the lower extremities. Objective Data Vital Signs Vital Signs: Vital Signs - 24 hr 07/06/19 16:31 07/06/19 18:07 07/06/19 18:20 Temperature 98.8 F 97.3 F L Pulse Rate 81 82 86 Respiratory Rate 14 16 14 Blood Pressure 122/91 H 84/45 L 104/70 Pulse Oximetry 99 96 99 07/06/19 18:35 07/06/19 18:50 07/06/19 19:05 Temperature Pulse Rate 80 80 78 Respiratory Rate 11 L 12 11 L Blood Pressure 103/82 100/68 111/80 Pulse Oximetry 94 93 96 07/06/19 19:30 07/06/19 19:45 07/06/19 20:15 Temperature 97.5 F L 97.7 F 97.7 F Pulse Rate 79 80 84 Respiratory Rate 16 16 18 Blood Pressure 116/82 114/84 119/86 Pulse Oximetry 99 98 100 07/06/19 21:15 07/07/19 02:14 07/07/19 06:00 Temperature 98.1 F 98.5 F 98.3 F Pulse Rate 80 72 82 Respiratory Rate 18 16 18 Blood Pressure 123/84 104/76 109/68 Pulse Oximetry 100 97 97 07/07/19 10:00 Temperature 97.9 F Pulse Rate 85 Respiratory Rate 18 Blood Pressure 96/67 L Pulse Oximetry 100 Intake/Output Intake/Output: Intake & Output 07/04/19 07/05/19 07/06/19 07/07/19 23:59 23:59 23:59 23:59 Intake Total 970 1750 1480 Output Total 300 1600 1200 Balance 670 150 280 Meds/Results Medications: Active Medications Generic Name Dose Route Start Last Admin Trade Name Freq PRN Reason Stop Dose Admin Acetaminophen 650 mg 07/05/19 14:01 07/05/19 14:47 Tylenol Tablet PO 650 mg Q6H PRN Administration Mild Pain (1-3) or Fever Hydrocodone Bitart/Acetaminophen 1 tab 07/05/19 22:10 07/07/19 12:08 [place] 5-325 Mg PO 1 tab Q6H PRN Administration Pain Rated 4-6 Hydrocodone Bitart/Acetaminophen 1 tab 07/07/19 15:24 [place] 10-325 Mg PO Q6H PRN Pain Rated 7-10 Albuterol 2 puff 07/05/19 14:55 Proventil Hfa INHALATION Q4-6H PRN Shortness Of Breath Or Wheezing Diphenhydramine HCl 12.5 mg 07/06/19 16:54 Benadryl Inj IV PUSH ONCE PRN Pruritis/Nausea Fentanyl Citrate 25 mcg 07/06/19 16:54 07/06/19 19:03 Sublimaze
[2019-07-07 16:00] VITALS: BP 122/81; PULSE 81; RESP 20; TEMP 36.4; O2SAT 100
--- NOTE | 2019-07-07 17:40 | WPDPN ---
Progress Note: A&P Assessment and Plan (1) Abscess of hand, right: Onset Date: ~06/2019 Code(s): L02.511 - Cutaneous abscess of right hand Status: Acute Assessment and Plan: Appears to have been adequately drained. Cellulitis is improving. Will remove pamela tomorrow. Continue current antibiotics until culture is reported. Time Spent With Patient Time with patient: less than 15 minutes Exam Narrative: Exam Narrative: WBC remains 3.7. Wound culture result is pending. Hand remains edematous, but knuckle lines are evident dorsally. Less erythema. No purulence. Pamela dry. She is very reluctant to flex or extend her digits. she said it felt swollen. Objective Data Vital Signs Vital Signs: Vital Signs - 24 hr 07/06/19 18:07 07/06/19 18:20 07/06/19 18:35 Temperature 36.3 C L Pulse Rate 82 86 80 Respiratory Rate 16 14 11 L Blood Pressure 84/45 L 104/70 103/82 Pulse Oximetry 96 99 94 07/06/19 18:50 07/06/19 19:05 07/06/19 19:30 Temperature 36.4 C L Pulse Rate 80 78 79 Respiratory Rate 12 11 L 16 Blood Pressure 100/68 111/80 116/82 Pulse Oximetry 93 96 99 07/06/19 19:45 07/06/19 20:15 07/06/19 21:15 Temperature 36.5 C 36.5 C 36.7 C Pulse Rate 80 84 80 Respiratory Rate 16 18 18 Blood Pressure 114/84 119/86 123/84 Pulse Oximetry 98 100 100 07/07/19 02:14 07/07/19 06:00 07/07/19 10:00 Temperature 36.9 C 36.8 C 36.6 C Pulse Rate 72 82 85 Respiratory Rate 16 18 18 Blood Pressure 104/76 109/68 96/67 L Pulse Oximetry 97 97 100 07/07/19 16:00 Temperature 36.4 C Pulse Rate 81 Respiratory Rate 20 Blood Pressure 122/81 Pulse Oximetry 100 Intake/Output Intake/Output: Intake & Output 07/04/19 07/05/19 07/06/19 07/07/19 23:59 23:59 23:59 23:59 Intake Total 970 1750 1730 Output Total 300 1600 1200 Balance 670 150 530 Meds/Results Medications: Active Medications Generic Name Dose Route Start Last Admin Trade Name Freq PRN Reason Stop Dose Admin Acetaminophen 650 mg 07/05/19 14:01 07/05/19 14:47 Tylenol Tablet PO 650 mg Q6H PRN Administration Mild Pain (1-3) or Fever Hydrocodone Bitart/Acetaminophen 1 tab 07/05/19 22:10 07/07/19 12:08 [place] 5-325 Mg PO 1 tab Q6H PRN Administration Pain Rated 4-6 Hydrocodone Bitart/Acetaminophen 1 tab 07/07/19 15:24 07/07/19 17:35 [place] 10-325 Mg PO 1 tab Q6H PRN Administration Pain Rated 7-10 Albuterol 2 puff 07/05/19 14:55 Proventil Hfa INHALATION Q4-6H PRN Shortness Of Breath Or Wheezing Diphenhydramine HCl 12.5 mg 07/06/19 16:54 Benadryl Inj IV PUSH ONCE PRN Pruritis/Nausea Fentanyl Citrate 25 mcg 07/06/19 16:54 07/06/19 19:03 Sublimaze IV PUSH 25 mcg Q2M PRN Administration Pain Ampicillin Sodium/Sulbactam Sodium 3 gm in 100 mls @ 200 mls/hr 07/05/19 17:00 07/07/19 17:36 Unasyn 3 Gm/Ns 100 Ml IVPB 200 mls/hr Q6HR LEXIE Administration Lactated Ringer's 1,000 mls @ 30 mls/hr 07/06/19 16:55 07/06/19 19:15 Lr - Lactated Ringers Iv IV CONT 30 mls/hr .Q24H LEXIE Infusion Vancomycin HCl 1,250 mg in 250 mls @ 200 mls/hr 07/07/19 10:00 07/07/19 12:10 Vancomycin 1,250 Mg/D5w 250 Ml IVPB Infused Q12H LEXIE Infusion Ibuprofen 400 mg 07/07/19 15:24 Motrin PO Q6H PRN Breakthrough Pain Ondansetron HCl 4 mg 07/05/19 18:17 07/06/19 20:22 Zofran Inj IV PUSH 4 mg Q6H PRN Administration Nausea And Vomiting Ropinirole HCl 0.5 mg 07/05/19 17:00 07/07/19 17:36 Ropinirole Hcl PO 0.5 mg TID LEXIE Administration Radiology Results: ITS Impressions Hand X-Ray 07/05/19 09:49 IMPRESSION: Soft tissue swelling Labs Labs: Laboratory Results - last 24 hr 07/06/19 07/07/19 07/07/19 22:45 06:21 06:21 WBC 3.7 L RBC 3.81 L Hgb 11.6 L Hct 32.8 L MCV 86.1 MCH 30.4 MCHC 35.4 RDW 11.1 L Plt Count 118 L MPV 9.9 Sodium
[2019-07-07 21:57] VITALS: BP 119/79; PULSE 77; RESP 16; TEMP 36.8; O2SAT 97
[2019-07-08] MEDS: AMPICILLIN SULB 3 GM/NS 100 ML 3 GM/100 ML VIAL IVPB ×3 (05:13→17:42)
[2019-07-08 06:00] VITALS: BP 107/80; PULSE 78; RESP 16; TEMP 36.9; O2SAT 96
[2019-07-08 06:20] LABS: Hematocrit 34.2 % (37.0-47.0); Hemoglobin 11.9 g/dL (12.0-15.0); Mean Corpuscular HGB Conc 34.8 g/dl (32-36); Mean Corpuscular Hemoglobin 29.7 pg (26-34); Mean Corpuscular Volume 85.3 fl (80-100); Mean Platelet Volume 10.3 fl (7.4-10.4); Platelet Count Result 158 k/mm3 (150-375); Red Blood Count 4.01 M/mm3 (4.2-5.4); White Blood Count 3.3 K/mm3 (4.5-10.0)
[2019-07-08 06:36] LABS: Blood Urea Nitrogen 10 mg/dL (7-17); Calcium 8.4 mg/dL (8.4-10.2); Carbon Dioxide 27 mmol/L (22-30); Chloride 98 mmol/L (98-107); Estimated CRCL calculation 92 ml/min; Estimated Glomerular Filt Rate > 60; Glucose 96 mg/dL (65-105); Potassium 3.9 mmol/L (3.4-5.0); Sodium 137 mmol/L (137-145)
[2019-07-08] MEDS: IBUPROFEN 400 MG TABLET PO (10:53)
--- NOTE | 2019-07-08 11:47 | PM.IMPN ---
Progress Note: A&P Assessment and Plan (1) Cellulitis of right hand: Code(s): L03.113 - Cellulitis of right upper limb Status: Acute Assessment and Plan: -----continue vancomycin and Unasyn. Postop day 2 of I&D. Gram stain shows many white blood cells and no organisms. Awaiting culture. Patient is neurovascularly intact and does not have any systemic symptoms at this time. White blood cell count slightly decreased but could be due to her chronic HIV. Will await culture results to adjust antibiotics then. (2) Hypokalemia: Code(s): E87.6 - Hypokalemia Status: Acute Assessment and Plan: -----resolved (3) Human immunodeficiency virus: Code(s): B20 - Human immunodeficiency virus [HIV] disease Status: Acute Assessment and Plan: ----- She has been off her medications for about 2 months due to lapse in insurance. She was encouraged to get in touch with [facility] AIDS project for help. Dr. lamar has seen her and his note was reviewed. Subjective Date/time seen: 07/08/19 11:47 Interval history: Pt is a 34-year-old female here cellulitis due to cat bite on her right hand. Patient was seen today and states her pain was bad yesterday but it has improved today. Her main complaint today is a headache that the Tylenol did help improve. She has a decreased appetite but is eating and drinking okay so far. She feels a bit constipated. Pt denies vomiting, fevers, chills, diarrhea, chest pain, sob, or abdominal pain. Exam Narrative: Exam Narrative: General: Well developed well nourished patient resting comfortably in bed in [facility] HEENT: normocephalic Neck: supple Neuro: Alert and oriented x4 CV:RRR Resp:CTA Abd: Soft, non distended. No pain to palpation. Positive bowel sounds Extremities: Right hand wrapped. Exam deferred to Dr. Yang since patient has significant pain yesterday. Radial pulses intact. No swelling, erythema, or pain to palpation to the lower extremities. Objective Data Vital Signs Vital Signs: Vital Signs - 24 hr 07/07/19 16:00 07/07/19 21:57 07/08/19 06:00 Temperature 97.6 F 98.2 F 98.4 F Pulse Rate 81 77 78 Respiratory Rate 20 16 16 Blood Pressure 122/81 119/79 107/80 Pulse Oximetry 100 97 96 Intake/Output Intake/Output: Intake & Output 07/05/19 07/06/19 07/07/19 07/08/19 23:59 23:59 23:59 23:59 Intake Total 970 1750 3120 500 Output Total 300 1600 2100 400 Balance 688 335 5561 100 Meds/Results Medications: Active Medications Generic Name Dose Route Start Last Admin Trade Name Freq PRN Reason Stop Dose Admin Acetaminophen 650 mg 07/05/19 14:01 07/05/19 14:47 Tylenol Tablet PO 650 mg Q6H PRN Administration Mild Pain (1-3) or Fever Hydrocodone Bitart/Acetaminophen 1 tab 07/05/19 22:10 07/07/19 23:43 [place] 5-325 Mg PO 1 tab Q6H PRN Administration Pain Rated 4-6 Hydrocodone Bitart/Acetaminophen 1 tab 07/07/19 15:24 07/08/19 05:13 [place] 10-325 Mg PO 1 tab Q6H PRN Administration Pain Rated 7-10 Albuterol 2 puff 07/05/19 14:55 Proventil Hfa INHALATION Q4-6H PRN Shortness Of Breath Or Wheezing Diphenhydramine HCl 12.5 mg 07/06/19 16:54 Benadryl Inj IV PUSH ONCE PRN Pruritis/Nausea Fentanyl Citrate 25 mcg 07/06/19 16:54 07/06/19 19:03 Sublimaze IV PUSH 25 mcg Q2M PRN Administration Pain Ampicillin Sodium/Sulbactam Sodium 3 gm in 100 mls @ 200 mls/hr 07/05/19 17:00 07/08/19 11:22 Unasyn 3 Gm/Ns 100 Ml IVPB 200 mls/hr Q6HR LEXIE Administration Lactated Ringer's 1,000 mls @ 30 mls/hr 07/06/19 16:55 07/06/19 19:15 Lr - Lactated Ringers Iv IV CONT 30 mls/hr .Q24H LEXIE Infusion Vancomycin HCl 1,250 mg in 250 mls @ 200 mls/hr 07/07/19 10:00 07/08/19 09:13 Vancomycin 1,250 Mg/D5w 250 Ml IVPB 125 mls/hr Q12H LEXIE Administration Ibuprofen 400 mg 02/22/20 15:24 07/08/19 10:53 Motrin PO 400 mg
[2019-07-08] MEDS: ONDANSETRON INJ 4 MG/2 ML VIAL IV PUSH (12:21)
--- NOTE | 2019-07-08 13:10 | WPDPN ---
Progress Note: A&P Additional Plan Abscess adequately treated. Now healing wound. OK for discharge from my stand point once appropriate antibiotic is determined by culture result. May be discharged with current dressing. Does not need to be changed daily, but may be changed and hand may be washed in a shower F/U with Dr Vidales on Tuesday. Exam Narrative: Exam Narrative: Hand less swollen. No erythema. Wick pulled with no purulence. Movement increasing. Objective Data Vital Signs Vital Signs: Vital Signs - 24 hr 07/07/19 16:00 07/07/19 21:57 07/08/19 06:00 Temperature 36.4 C 36.8 C 36.9 C Pulse Rate 81 77 78 Respiratory Rate 20 16 16 Blood Pressure 122/81 119/79 107/80 Pulse Oximetry 100 97 96 Intake/Output Intake/Output: Intake & Output 07/05/19 07/06/19 07/07/19 07/08/19 23:59 23:59 23:59 23:59 Intake Total 970 1750 3120 840 Output Total 300 1600 2100 400 Balance 314 479 1578 440 Meds/Results Medications: Active Medications Generic Name Dose Route Start Last Admin Trade Name Freq PRN Reason Stop Dose Admin Acetaminophen 650 mg 07/05/19 14:01 07/05/19 14:47 Tylenol Tablet PO 650 mg Q6H PRN Administration Mild Pain (1-3) or Fever Hydrocodone Bitart/Acetaminophen 1 tab 07/05/19 22:10 07/07/19 23:43 [place] 5-325 Mg PO 1 tab Q6H PRN Administration Pain Rated 4-6 Hydrocodone Bitart/Acetaminophen 1 tab 07/07/19 15:24 07/08/19 12:19 [place] 10-325 Mg PO 1 tab Q6H PRN Administration Pain Rated 7-10 Albuterol 2 puff 07/05/19 14:55 Proventil Hfa INHALATION Q4-6H PRN Shortness Of Breath Or Wheezing Diphenhydramine HCl 12.5 mg 07/06/19 16:54 Benadryl Inj IV PUSH ONCE PRN Pruritis/Nausea Fentanyl Citrate 25 mcg 07/06/19 16:54 07/06/19 19:03 Sublimaze IV PUSH 25 mcg Q2M PRN Administration Pain Ampicillin Sodium/Sulbactam Sodium 3 gm in 100 mls @ 200 mls/hr 07/05/19 17:00 07/08/19 11:22 Unasyn 3 Gm/Ns 100 Ml IVPB 200 mls/hr Q6HR LEXIE Administration Vancomycin HCl 1,250 mg in 250 mls @ 200 mls/hr 07/07/19 10:00 07/08/19 09:13 Vancomycin 1,250 Mg/D5w 250 Ml IVPB 125 mls/hr Q12H LEXIE Administration Ibuprofen 400 mg 07/07/19 15:24 07/08/19 10:53 Motrin PO 400 mg Q6H PRN Administration Breakthrough Pain Ondansetron HCl 4 mg 07/05/19 18:17 07/08/19 12:21 Zofran Inj IV PUSH 4 mg Q6H PRN Administration Nausea And Vomiting Polyethylene Glycol 17 gm 07/08/19 11:46 Miralax PO DAILY PRN Constipation Ropinirole HCl 0.5 mg 07/05/19 17:00 07/08/19 12:26 Ropinirole Hcl PO 0.5 mg TID LEXIE Administration Radiology Results: ITS Impressions Hand X-Ray 07/05/19 09:49 IMPRESSION: Soft tissue swelling Labs Labs: Laboratory Results - last 24 hr 07/08/19 07/08/19 05:39 05:39 WBC 3.3 L RBC 4.01 L Hgb 11.9 L Hct 34.2 L MCV 85.3 MCH 29.7 MCHC 34.8 RDW 11.0 L Plt Count 158 MPV 10.3 Sodium 137 Potassium 3.9 Chloride 98 Carbon Dioxide 27 BUN 10 Creatinine 0.70 Estim Creat Clear Calc 92 Estimated GFR > 60 Glucose 96 Calcium 8.4 Quality VTE Prophylaxis VTE prophylaxis: mechanical ordered
[2019-07-08 14:28] VITALS: BP 114/73; PULSE 79; RESP 20; TEMP 36.7; O2SAT 97
[2019-07-08] MEDS: polyethylene glycoL 3350 17 GM POWD.PACK PO (17:49)
[2019-07-08 21:56] LABS: Vancomycin Trough 6.8 ug/mL (10.0-20.0)
[2019-07-08 22:00] VITALS: BP 128/90; PULSE 75; RESP 18; TEMP 36.7; O2SAT 100
[2019-07-09] MEDS: AMPICILLIN SULB 3 GM/NS 100 ML 3 GM/100 ML VIAL IVPB ×3 (00:27→11:36)
[2019-07-09] MEDS: ONDANSETRON INJ 4 MG/2 ML VIAL IV PUSH (03:19)
[2019-07-09 06:00] VITALS: BP 119/91; PULSE 71; RESP 18; TEMP 36.3; O2SAT 98
[2019-07-09 06:43] LABS: Estimated CRCL calculation 105 ml/min; Estimated Glomerular Filt Rate > 60
[2019-07-09] MEDS: polyethylene glycoL 3350 17 GM POWD.PACK PO (08:09)
--- NOTE | 2019-07-09 12:29 | WPDPN ---
Progress Note: A&P Additional Plan Dressing may be left on until seen in my office on Tuesday. Pt may change it if needed. Oral coverage for Pasturella should be a penicillin, check with Dr Tracy re: duration or modification of that in view of HIV status. Exam Narrative: Exam Narrative: No erythema on exam today. Moves all digits and wrist more freely with less apprehension. No fever. Culture reveals the expected Pasturella multocida. Objective Data Vital Signs Vital Signs: Vital Signs - 24 hr 07/08/19 14:28 07/08/19 22:00 07/09/19 06:00 Temperature 36.7 C 36.7 C 36.3 C L Pulse Rate 79 75 71 Respiratory Rate 20 18 18 Blood Pressure 114/73 128/90 119/91 H Pulse Oximetry 97 100 98 Intake/Output Intake/Output: Intake & Output 07/06/19 07/07/19 07/08/19 07/09/19 23:59 23:59 23:59 23:59 Intake Total 1750 3120 3170 1330 Output Total 1600 2100 2400 1600 Balance 150 1020 770 -270 Meds/Results Medications: Active Medications Generic Name Dose Route Start Last Admin Trade Name Freq PRN Reason Stop Dose Admin Acetaminophen 650 mg 07/05/19 14:01 07/05/19 14:47 Tylenol Tablet PO 650 mg Q6H PRN Administration Mild Pain (1-3) or Fever Hydrocodone Bitart/Acetaminophen 1 tab 07/05/19 22:10 07/07/19 23:43 [place] 5-325 Mg PO 1 tab Q6H PRN Administration Pain Rated 4-6 Hydrocodone Bitart/Acetaminophen 1 tab 07/07/19 15:24 07/09/19 05:42 [place] 10-325 Mg PO 1 tab Q6H PRN Administration Pain Rated 7-10 Albuterol 2 puff 07/05/19 14:55 Proventil Hfa INHALATION Q4-6H PRN Shortness Of Breath Or Wheezing Diphenhydramine HCl 12.5 mg 07/06/19 16:54 Benadryl Inj IV PUSH ONCE PRN Pruritis/Nausea Fentanyl Citrate 25 mcg 07/06/19 16:54 07/06/19 19:03 Sublimaze IV PUSH 25 mcg Q2M PRN Administration Pain Ampicillin Sodium/Sulbactam Sodium 3 gm in 100 mls @ 200 mls/hr 07/05/19 17:00 07/09/19 12:24 Unasyn 3 Gm/Ns 100 Ml IVPB Infused Q6HR LEXIE Infusion Vancomycin HCl 1,500 mg in 500 mls @ 333.333 mls/hr 07/09/19 07:00 07/09/19 09:06 Vancomycin 1,500 Mg/D5w 500 Ml IVPB 0 mls/hr Q12H LEXIE Infusion Ibuprofen 400 mg 07/07/19 15:24 07/08/19 10:53 Motrin PO 400 mg Q6H PRN Administration Breakthrough Pain Ondansetron HCl 4 mg 07/05/19 18:17 07/09/19 03:19 Zofran Inj IV PUSH 4 mg Q6H PRN Administration Nausea And Vomiting Polyethylene Glycol 17 gm 07/08/19 11:46 07/09/19 08:09 Miralax PO 17 gm DAILY PRN Administration Constipation Ropinirole HCl 0.5 mg 07/05/19 17:00 07/09/19 08:08 Ropinirole Hcl PO 0.5 mg TID LEXIE Administration Radiology Results: ITS Impressions Hand X-Ray 07/05/19 09:49 IMPRESSION: Soft tissue swelling Labs Labs: Laboratory Results - last 24 hr 07/08/19 07/09/19 20:50 05:44 Creatinine 0.60 L Estim Creat Clear Calc 105 Estimated GFR > 60 Vancomycin Trough 6.8 L Quality VTE Prophylaxis VTE prophylaxis: mechanical ordered
--- NOTE | 2019-07-09 12:52 | WPDINFPN2 ---
Progress Note: A&P Assessment and Plan (1) Cellulitis: Qualifiers: Laterality: right Site of cellulitis: extremity Site of cellulitis of extremity: upper extremity Qualified Code(s): L03.113 - Cellulitis of right upper limb Code(s): L03.90 - Cellulitis, unspecified Status: Acute Assessment and Plan: 1. Cat bite cellulitis, stable exam, no systemic infection. Pasturella isolated, which is a common pathogen in this situation. 2. HIV infection without AIDS 3. Mild eosinophilia, perhaps due to HIV itself (not uncommon) REC AmpSulbactam #5, stop and place back on Augmentin, complete her home supply in about 10 days. Then stop. She should get in touch with [employer] (I think [phone]) to get assistance with paying for her [place]. She should F/U with her usual HIV treating provider (who is not dc). Subjective Date/time seen: 07/09/19 12:52 Interval history: Op note reviewed. Pain doing well. no f/c/s. No n/v Exam Narrative: Exam Narrative: afebrile Const: General: no acute distress Eyes: General: appearance normal, both eyes and all related structures Resp: Effort & Inspection: normal respiratory effort Auscultation: clear to auscultation bilaterally GI: GI Palp: Yes Soft to palpation and No Tenderness to palpation present (GI) Skin: General skin exam: normal color and no rashes or lesions noted Extrem: Right upper extremity: normal to inspection and edema Other: hand dressed and dry. No proximal erythema/streaking/warmth. No epitrochlear nor axillary nodes palpable Objective Data Vital Signs Vital Signs: Vital Signs - 24 hr 07/08/19 14:28 07/08/19 22:00 07/09/19 06:00 Temperature 36.7 C 36.7 C 36.3 C L Pulse Rate 79 75 71 Respiratory Rate 20 18 18 Blood Pressure 114/73 128/90 119/91 H Pulse Oximetry 97 100 98 Intake/Output Intake/Output: Intake & Output 07/06/19 07/07/19 07/08/19 07/09/19 23:59 23:59 23:59 23:59 Intake Total 1750 3120 3170 1330 Output Total 1600 2100 2400 1600 Balance 150 1020 770 -270 Meds/Results Medications: Active Medications Generic Name Dose Route Start Last Admin Trade Name Freq PRN Reason Stop Dose Admin Acetaminophen 650 mg 07/05/19 14:01 07/05/19 14:47 Tylenol Tablet PO 650 mg Q6H PRN Administration Mild Pain (1-3) or Fever Hydrocodone Bitart/Acetaminophen 1 tab 07/05/19 22:10 07/07/19 23:43 [place] 5-325 Mg PO 1 tab Q6H PRN Administration Pain Rated 4-6 Hydrocodone Bitart/Acetaminophen 1 tab 07/07/19 15:24 07/09/19 12:30 [place] 10-325 Mg PO 1 tab Q6H PRN Administration Pain Rated 7-10 Albuterol 2 puff 07/05/19 14:55 Proventil Hfa INHALATION Q4-6H PRN Shortness Of Breath Or Wheezing Diphenhydramine HCl 12.5 mg 07/06/19 16:54 Benadryl Inj IV PUSH ONCE PRN Pruritis/Nausea Fentanyl Citrate 25 mcg 07/06/19 16:54 07/06/19 19:03 Sublimaze IV PUSH 25 mcg Q2M PRN Administration Pain Ampicillin Sodium/Sulbactam Sodium 3 gm in 100 mls @ 200 mls/hr 07/05/19 17:00 07/09/19 12:24 Unasyn 3 Gm/Ns 100 Ml IVPB Infused Q6HR LEXIE Infusion Vancomycin HCl 1,500 mg in 500 mls @ 333.333 mls/hr 07/09/19 07:00 07/09/19 09:06 Vancomycin 1,500 Mg/D5w 500 Ml IVPB 0 mls/hr Q12H LEXIE Infusion Ibuprofen 400 mg 07/07/19 15:24 07/08/19 10:53 Motrin PO 400 mg Q6H PRN Administration Breakthrough Pain Ondansetron HCl 4 mg 07/05/19 18:17 07/09/19 03:19 Zofran Inj IV PUSH 4 mg Q6H PRN Administration Nausea And Vomiting Polyethylene Glycol 17 gm 07/08/19 11:46 07/09/19 08:09 Miralax PO 17 gm DAILY PRN Administration Constipation Ropinirole HCl 0.5 mg 07/05/19 17:00 07/09/19 08:08 Ropinirole Hcl PO 0.5 mg TID LEXIE Administration Radiology Results: ITS Impressions Hand X-Ray 07/05/19 09:49 IMPRESSION: Soft tissue swelling Labs Labs: Laboratory Results - last 24 hr 07/08
--- NOTE | 2019-07-09 13:13 | PM.DS ---
DS: Diagnosis Admitting Diagnosis Admitting Diagnosis: Cellulitis of right upper limb Discharge Diagnosis (1) Cellulitis of right hand: Code(s): L03.113 - Cellulitis of right upper limb Status: Acute Assessment and Plan: -----status post I&D with pasteurella growing on culture. Patient admits that she never picked upper antibiotics or started the Augmentin. She was educated to rock picker this prescription and complete her therapy. She understands if she does not do this she will likely be rehospitalized. Spoke with infectious disease who agrees with this plan in the setting of her HIV status. (2) Hypokalemia: Code(s): E87.6 - Hypokalemia Status: Acute Assessment and Plan: -----resolved (3) Human immunodeficiency virus: Code(s): B20 - Human immunodeficiency virus [HIV] disease Status: Acute Assessment and Plan: ----- She has been off her medications for about 2 months due to lapse in insurance. She was encouraged to get in touch with [facility] AIDS project for help. DS: Summary Hospital Course Reason for hospitalization: Cat bite Hospital Course: Patient is a 34-year-old immunosuppressed patient who presented emergency room again for a cat bite infection on her right hand which was getting increasingly worse. She was previously seen in the ER and prescribed Augmentin which she admits to not taking. Vitals in the ER were temperature 97.6?, pulse 99, respiratory rate 18, blood pressure 115/86, pulse ox 97 on room air. Initial white blood cell count normal 5.4. X-ray of the hand showed soft tissue swelling. Patient was started on Unasyn and vancomycin and was seen by infectious disease as well as Dr. Yang, plastic surgery. The patient was taken to the OR for an I and D of the abscess in the hand. This fluid was cultured and grew out pasteurella. Because of her immunocompromised state, Infectious Disease saw the patient and recommended completing her Augmentin prescription. The patient told me she was not previously able to afford this and a coupon was given and said that she would be able to pick it up. Overall, the patient did well and improved at discharge. She was educated about the worrisome signs and symptoms come back to emergency room for. She understands the importance of taking her medications and following up with her infectious disease doctor to be placed back on her antivirals.She confirms that she understand this can progres to AIDs if she does not comply. Status at Discharge Functional status at discharge: independent ambulation Overall status at discharge: patient is back to baseline Time Spent with Patient Time attestation: Total time spent providing and/or coordinating discharge services:34 min Time spent: Greater than 30 minutes Exam Narrative: Exam Narrative: General: Well developed well nourished patient resting comfortably in bed in NAD HEENT: normocephalic Neck: supple Neuro: Alert and oriented x4 CV:RRR Resp:CTA Abd: Soft, non distended. No pain to palpation. Positive bowel sounds Extremities: Right hand swelling improved with little erythema. Neurovascularly intact. Tile Shader strength decreased due to pain. No swelling, erythema, or pain to palpation to the lower extremities. DS: Data Data Completed and Pending Labs on day of discharge: Labs from last 24 hours 07/09/19 07/08/19 05:44 20:50 Creatinine 0.60 L Estim Creat Clear Calc 105 Estimated GFR > 60 Vancomycin Trough 6.8 L Preliminary micro results at discharge 07/06/19 17:48 Anaerobic Culture - Preliminary Hand Right Discharge Plan Discharge Attending physician on discharge: Arden Virgen Consulting providers: Maday Carreon ; Gabriel Tracy ; Zachary Yang ; Alize Solorzano ; Arely Phillips ; Maximiliano Mejia Discharging Clinician: Arely Phillips Patient Disposition: Home, Self-Care Activity: as tolerated
[2019-07-09 14:00] VITALS: BP 116/83; PULSE 81; RESP 16; TEMP 36.6; O2SAT 100
== END 2019-07-09 14:30 | disposition home or self-care (01) | DRG 710 ==
LOC: ANHED 11:32 → ANH3MEDSUR 11:39
PROVIDERS: Physician Assistant; Plastic Surgery; Admitting Provider Internal Medicine; Emergency Provider Emergency Medicine; Visit Provider Internal Medicine
PROC: 0J9J0ZZ Drainage of Right Hand Subcutaneous Tissue and Fascia, Open Approach (ICD-10-PCS; principal; 2019-07-06 17:00)
DX: L03.113 Cellulitis of right upper limb (principal); B20 Human immunodeficiency virus [HIV] disease; S60.571A Other superficial bite of hand of right hand, initial encounter; B96.89 Other specified bacterial agents as the cause of diseases classified elsewhere; W55.01XA Bitten by cat, initial encounter; E87.6 Hypokalemia; G25.81 Restless legs syndrome; F17.210 Nicotine dependence, cigarettes, uncomplicated; Z90.710 Acquired absence of both cervix and uterus
CPT/HCPCS: 36415; 73130; 80048; 80053; 80202; 82565; 83735; 85025; 85027; 85652; 86140; 87070; 87075; 87077; 87205; 96365; 96366; 96367; 96375; 96376; 99285; A9270; G0378; G0379; J0295; J1885; J2250; J2270; J2405; J2704; J3010; J3370; J7120

== ENCOUNTER 2020-07-10 06:30 | Emergency (ER) | payer OTHER, SELFPAY ==
--- NOTE | ~2020-07-10 | CT_ITS ---
EXAMINATION: CT abdomen pelvis w con EXAM DATE: 07/10/2020 07:51 INDICATION: Right lower quadrant pain. Blood in stool for a week. TECHNIQUE: Spiral CT of the abdomen and pelvis was performed following intravenous injection of 100 m L Omnipaque 350. Axial, coronal and sagittal images were reviewed. The dose-length product (DLP) fo r this examination was 296.16 mGy-cm. The exposure was tailored according to patient size (auto mA e xposure control), and iterative reconstruction (ASIR) was used as additional dose reduction technique . There is no prior study for comparison. FINDINGS: The liver, spleen, adrenal glands and pancreas are unremarkable. Gallbladder is unremarkab le. No biliary obstruction. Portal and splenic veins are patent. Kidneys enhance symmetrically. T here is no hydronephrosis. The uterus is not identified and has likely been surgically resected. T he bladder is unremarkable. Inguinal lymph nodes upper limits of normal in size. There are no findings to suggest appendicitis. The stomach and small bowel are unremarkable. There is moderate amount of colonic stool. No free intraperitoneal gas. The heart is normal in size. T here are no pericardial or pleural effusions. There is a 4 mm left lower lobe pleural-based nodule l ikely granuloma. Optional follow-up up one year low-dose chest CT. There are no osteoblastic or oste olytic lesions identified. IMPRESSION: 1. No acute intra-abdominal findings. 2. Small left lower lobe nodule likely granuloma; optional one-year follow-up LV CT. Reviewed, dictated and finalized at location [facility]. 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
[2020-07-10 06:34] VITALS: BP 127/97; PULSE 93; RESP 20; TEMP 36.4; O2SAT 100
[2020-07-10 07:01] LABS: Eosinophils Absolute Auto 0.2 K/mm3 (0-0.3); Eosinophils Percent Auto 5.5 % (0-4.4); Hematocrit 35.8 % (37.0-47.0); Hemoglobin 12.6 g/dL (12.0-15.0); Lymphocytes Absolute Auto 0.65 K/mm3 (0.9-3.2); Lymphocytes Percent Auto 21.1 % (18.3-44.2); Mean Corpuscular HGB Conc 35.2 g/dl (32-36); Mean Corpuscular Volume 88.2 fl (80-100); Mean Platelet Volume 10.5 fl (7.4-10.4); Monocytes Absolute Auto 0.4 K/mm3 (0.1-0.6); Monocytes Percent Auto 12.3 % (2.6-8.5); Neutrophils Absolute Auto 1.9 K/mm3 (1.3-6.7); Neutrophils Percent Auto 60.1 % (45.5-73.1); Platelet Count Result 147 k/mm3 (150-375); Red Blood Count 4.06 M/mm3 (4.2-5.4); Red Cell Distribution Width 11.5 % (11.5-14.5); White Blood Count 3.1 K/mm3 (4.5-10.0)
[2020-07-10 07:05] LABS: Add Urine Microscopic? YES; Appearance Urine Clear (Clear); Bilirubin Urine Negative (Negative); Blood Urine Negative (Negative); Color Urine Yellow (Yellow); Glucose Urine UA Negative (Negative); Ketones Urine Negative (Negative); Leukocyte Esterase Ur 3+ LEU/UL (Negative); Mucus Urine Rare /lpf; Nitrate Urine Negative (Negative); Protein Urine 1+ mg/dL (Negative); Specific Grav Ur 1.025 (1.001-1.035); Squamous Epithelial Cell Urine Many /hpf (Few); Urobilinogen Urine Negative mg/dL (<2.0); WBC Urine 51-75 /hpf
[2020-07-10 07:13] LABS: Alanine Aminotransferase 19 U/L (4-35); Albumin Level 4.2 g/dL (3.5-5.1); Alkaline Phosphatase 69 U/L (38-126); Anion Gap 9 mmol/L (8-16); Aspartate Amino Transferase 23 U/L (14-36); Bilirubin,Total 0.3 mg/dL (0.2-1.3); Blood Urea Nitrogen 17 mg/dL (7-17); Calcium 8.5 mg/dL (8.4-10.2); Carbon Dioxide 25 mmol/L (22-30); Chloride 103 mmol/L (98-107); Estimated Glomerular Filt Rate > 60; Glucose 106 mg/dL (65-105); Lipase 79 U/L (23-300); Sodium 137 mmol/L (137-145)
--- NOTE | 2020-07-10 07:29 | PC.NURSE ---
Report received from LUISA Egan. Pt denies needs at present. Updated on awaiting results.
--- NOTE | 2020-07-10 08:22 | ED.ABDPAIN ---
HPI - Abdominal Pain General Chief Complaint: GI Bleed Stated Complaint: abd pain, bloody stool Time Seen by Provider: 07/10/20 07:30 Source: patient Mode of arrival: ambulatory Limitations: no limitations History of Present Illness HPI narrative: 35-year-old with a history of asthma, HIV here with complaints of lower abdominal pain associated with diarrhea. Patient stated symptoms started 2 days ago and last night she noticed some dark-colored stool. Also complains of pain in the right lower quadrant area radiating into her bladder area for since early this morning. She denies any fever or chills. Denies any recent use of antibiotic. No history of diverticulosis or diverticulitis in the past. No history of Covid exposure MD elicited complaint: abdominal pain Pertinent past history: gastrointestinal bleeding and HIV Onset (ago): day(s) (1) Pain Consistency: intermittent Location: RLQ Severity: moderate Quality: cramping Radiation: suprapubic Exacerbating factors: bowel movement Relieving factors: bowel movement Related Data Patient : No Home Medications Medication Instructions Recorded Confirmed albuterol sulfate [Ventolin HFA] 2 puff INHALATION Q4-6H 07/04/19 07/06/19 ropinirole 0.5 mg PO TID 07/05/19 07/05/19 Allergies Allergy/AdvReac Type Severity Reaction Status Date / Time No Known Allergies Allergy Verified 07/06/19 16:49 Review of Systems Review of Systems: All systems reviewed & are unremarkable except as noted in HPI and below Constitutional: Constitutional: Reports no additional constitutional complaints Eyes: Eyes: Reports no additional eye complaints ENT: Reports system reviewed and no additional complaints, except as documented Cardiovascular: Cardiovascular: Reports no additional cardiovascular complaints Respiratory: Respiratory: Reports no additional respiratory complaints Gastrointestinal: Gastrointestinal: Reports as per HPI Genitourinary: Genitourinary: Reports no additional female genitourinary complaints Musculoskeletal: Musculoskeletal: Reports no additional musculoskeletal complaints [facility] Past Medical History Medical History Abscess of hand, right (~06/2019) Due to cat bite. S/P I&D. Asthma Human immunodeficiency virus Diagnosed in 2005. Restless leg syndrome Surgical History Surgical History Status post section Status post hysterectomy Status post tubal ligation Family History Family History Mother Hypertension Diabetes mellitus Father Family history of coronary artery disease Social History Social History Social History: The patient lives in [place]. Her boyfriend has recently moved in. She has a 9-year-old and 13-year-old at home. She works at [employer], [employer], and she was just offered a job at [employer] working as an [employer]. She designates her mother, Bonnie Cantrell, as her surrogate decision maker and she wishes to be a full code. She drinks alcohol about 1 time a week, up to 1 bottle of wine. She Will smokes socially when drinking. She has a history of crack cocaine abuse and has been clean for about 12 years. She denies history of IV drug use. Gender identity (if verbalized by the patient): Female Spiritual care concerns: No Agree to blood products: No Exam Narrative: Exam Narrative: GENERAL: Well-appearing, well-nourished, and in no acute distress. HEAD: Normocephalic, atraumatic. EYES: PERRLA and EOMI. ENT: Nares clear, no rhinorrhea or epistaxis. NECK: Supple. CHEST: Clear to auscultation. No respiratory distress. HEART: Regular rate and rhythm. No murmur heard. Normal peripheral pulses. ABDOMEN: Soft, mild tenderness in the right lower and suprapubic area ,
== END 2020-07-10 08:32 | disposition home or self-care (01) ==
PROVIDERS: Emergency Medicine; Emergency Provider Family Medicine; PCP Physician Assistant
DX: N39.0 Urinary tract infection, site not specified (principal); R10.31 Right lower quadrant pain; Z21 Asymptomatic human immunodeficiency virus [HIV] infection status; F17.210 Nicotine dependence, cigarettes, uncomplicated; R91.8 Other nonspecific abnormal finding of lung field; J45.909 Unspecified asthma, uncomplicated; G25.81 Restless legs syndrome
CPT/HCPCS: 36415; 74177; 80053; 81001; 81025; 83690; 85025; 87086; 99284; Q9967

== ENCOUNTER 2020-08-27 18:52 | Emergency (ER) | payer OTHER, SELFPAY ==
[2020-08-27 19:13] VITALS: BP 140/98; PULSE 110; RESP 18; TEMP 35.9; O2SAT 100
--- NOTE | 2020-08-27 19:35 | ED.SKABFB ---
HPI - Skin/Abscess/Foreign Bdy General Chief complaint: Urogenital-Female Stated complaint: severe pain vaginal area Time Seen by Provider: 08/27/20 19:26 Source: patient and RN notes reviewed Mode of arrival: ambulatory Limitations: no limitations History of Present Illness HPI narrative: Patient presents today complaining of severe pain to her vulva. States that she believes she may have a Bartholin's gland cyst or abscess. Symptoms have been present and progressively worsening over the last 4 days. She has been trying to apply a heating pad and taking ibuprofen without relief. Currently rates her pain 10/10. She is unable to get comfortable in any position. Denies history of abscesses or cysts in the past. Associated symptoms include nausea since yesterday, fatigue, subjective fever. Patient is currently getting worked up by gastroenterology for blood and mucus in her stool and she did just have a blood and mucus filled stool prior to arrival. Related Data Home Medications Medication Instructions Recorded Confirmed albuterol sulfate [Ventolin HFA] 2 puff INHALATION Q4-6H PRN 07/04/19 08/27/20 ropinirole 0.5 mg PO HS 07/05/19 08/27/20 [id number]-[id number]-hwltve ala 1 tablet PO DAILY 08/27/20 08/27/20 [Odefsey] Allergies Allergy/AdvReac Type Severity Reaction Status Date / Time No Known Allergies Allergy Verified 08/27/20 19:05 Review of Systems Review of Systems: Narrative: CONSTITUTIONAL: Denies body aches, fever, chills, or sweats. EYES: Denies visual changes, redness, or discharge. ENT: Denies rhinorrhea, congestion, sore throat, or otalgia. CARDIOVASCULAR: Denies chest pain, palpitations, or edema. RESPIRATORY: Denies cough or dyspnea. GASTROINTESTINAL: Denies abdominal pain, nausea, vomiting, or diarrhea. GENITOURINARY: Denies dysuria or hematuria. SKIN: Denies rash, itching, or wounds. + Possible vulvar abscess MUSCULOSKELETAL: Denies back pain, joint pain, or myalgia. NEUROLOGIC: Denies headache, numbness, tingling, or weakness. PSYCH: Denies depression or anxiety. [facility] Past Medical History Medical History Abscess of hand, right (~06/2019) Due to cat bite. S/P I&D. Asthma Human immunodeficiency virus Diagnosed in 2005. Restless leg syndrome Surgical History Surgical History Status post section Status post hysterectomy Status post tubal ligation Family History Family History Mother Hypertension Diabetes mellitus Father Family history of coronary artery disease Social History Social History Social History: The patient lives in [place]. Her boyfriend has recently moved in. She has a 9-year-old and 13-year-old at home. She works at [employer], [employer], and she was just offered a job at [employer] working as an [employer]. She designates her mother, Bonnie Cantrell, as her surrogate decision maker and she wishes to be a full code. She drinks alcohol about 1 time a week, up to 1 bottle of wine. She Will smokes socially when drinking. She has a history of crack cocaine abuse and has been clean for about 12 years. She denies history of IV drug use. Gender identity (if verbalized by the patient): Female Spiritual care concerns: No Agree to blood products: No Comments At time of signature, I have reviewed and agree with nursing past medical, surgical, social and family history unless otherwise noted. Please see nursing chart for further information. There is no relevant family history pertinent to the presenting complaint Exam Narrative: Exam Narrative: GENERAL: Well-appearing, well-nourished, and in moderate pain distress. HEAD: Normocephalic, atraumatic. EYES: EOMI. No redness or drainage.
== END 2020-08-27 19:45 | disposition short-term general hospital (02) ==
PROVIDERS: Emergency Provider Nurse Practitioner; PCP Physician Assistant
DX: N89.8 Other specified noninflammatory disorders of vagina (principal); J45.909 Unspecified asthma, uncomplicated; Z21 Asymptomatic human immunodeficiency virus [HIV] infection status; G25.81 Restless legs syndrome; Z72.0 Tobacco use
CPT/HCPCS: 99212; G0463

== ENCOUNTER 2020-08-27 20:12 | Emergency (ER) | payer OTHER, SELFPAY ==
--- NOTE | ~2020-08-27 | CT_ITS ---
EXAMINATION: CT abdomen pelvis w con DATE: 08/27/2020 23:46 INDICATION: Rectal/vaginal pain, rectal bleeding TECHNIQUE: Computed tomography (CT) of the abdomen and pelvis was performed with 100 cc Omnipaque 350 intravenous contrast. Automated exposure control and iterative reconstruction technique were employe d. Exam dose: 323.52 mGy-cm total exam DLP. COMPARISON: 07/10/2020 CT abdomen pelvis FINDINGS: The lung bases are clear of infiltrate or consolidation. Normal heart size. No pericardial or pleural effusion. The liver, gallbladder, bile ducts, pancreas, pancreatic duct, spleen, adrenal glands and kidneys neli ear normal. No urinary tract calculus or hydroureteronephrosis. The urinary bladder is unremarkable. Status post hysterectomy. Approximately 1.4 x 1.7 cm cystic lesion is noted in the right vaginal area. Consider gynecologic con sultation. Normal caliber of the abdominal aorta. No intraperitoneal or retroperitoneal or pelvic mass lesion or adenopathy or ascites. No evidence of appendicitis. No bowel obstruction, bowel wall thickening, pneumatosis or intraperiton eal free air. Multiple bilateral inguinal lymph nodes are noted, measuring up to approximately 11.5 x 14.6 mm on th e right, by 15.5 mm on the left. Included skeletal structures are unremarkable. IMPRESSION: Approximately 1.4 x 1.7 cm cystic lesion in the right vaginal wall area; consider gynecol ogic consultation with possible drainage, culture and/or biopsy as clinically appropriate Mild bilateral inguinal lymph node prominence, right greater than left, possibly reactive Status post hysterectomy Reviewed, dictated and finalized at [facility]. Reviewed, dictated and finalized at location [facility]. IMPRESSION: Approximately 1.4 x 1.7 cm cystic lesion in the right vaginal wall area; consider gynecologic consultation with possible drainage, culture and/or biopsy as clinically appropriate Mild bilateral inguinal lymph node prominence, right greater than left, possibl y reactive Status post hysterectomy
[2020-08-27 20:34] VITALS: BP 111/70; PULSE 105; RESP 18; TEMP 36.4; O2SAT 100
[2020-08-27] MEDS: MORPHINE SULFATE (*CRX) 4 MG/ML INJ IV PUSH (22:24)
[2020-08-27 22:29] LABS: Basophils Absolute Auto 0.1 K/mm3 (0.0-0.1); Basophils Percent Auto 0.4 % (0.2-1.2); Eosinophils Absolute Auto 0.4 K/mm3 (0-0.3); Eosinophils Percent Auto 3.2 % (0-4.4); Hematocrit 34.7 % (37.0-47.0); Hemoglobin 12.3 g/dL (12.0-15.0); Immature Granulocyte Absolute 0.03 K/mm3 (0.00-0.031); Immature Granulocyte Percent A 0.3 % (0-0.5); Lymphocytes Absolute Auto 1.06 K/mm3 (0.9-3.2); Lymphocytes Percent Auto 9.3 % (18.3-44.2); Mean Corpuscular HGB Conc 35.4 g/dl (32-36); Mean Corpuscular Volume 87.4 fl (80-100); Monocytes Absolute Auto 0.7 K/mm3 (0.1-0.6); Monocytes Percent Auto 5.9 % (2.6-8.5); Neutrophils Absolute Auto 9.3 K/mm3 (1.3-6.7); Neutrophils Percent Auto 80.9 % (45.5-73.1); Platelet Count Result 176 k/mm3 (150-375); Red Blood Count 3.97 M/mm3 (4.2-5.4); Red Cell Distribution Width 12.1 % (11.5-14.5); White Blood Count 11.4 K/mm3 (4.5-10.0)
[2020-08-27 22:30] VITALS: BP 118/89; PULSE 94; RESP 19; O2SAT 100
[2020-08-27 22:36] LABS: Bacteria Urine 1+ /hpf; Mucus Urine Few /lpf; Squamous Epithelial Cell Urine Many /hpf (Few); WBC Urine >75 /hpf
[2020-08-27 22:43] LABS: INR 0.9
--- NOTE | 2020-08-27 22:48 | ED.GENADULT ---
HPI - General Adult General Chief complaint: Unspecified Stated complaint: Sent By Urgent Care Time Seen by Provider: 08/27/20 22:01 History of Present Illness HPI narrative: Patient is a 35-year-old female who presents ER with rectal and pelvic pain. Patient reports she is developed some swelling that causes pain with defecation and urination over the last few days. No fevers or chills or sweats. Reports she has some chronic issues with mucus-like stools and has been seeing a GI physician. No formal diagnosis of UC or Crohn's. Reports over the last couple days she started developing some blood within her stool as well. She reports some burning with urination. No lower abdominal pain. Patient is HIV positive and takes her antiretroviral therapy. She has not had a recent viral load drawn due to Covid pandemic. Related Data Home Medications Medication Instructions Recorded Confirmed albuterol sulfate [Ventolin HFA] 2 puff INHALATION Q4-6H PRN 07/04/19 08/27/20 ropinirole 0.5 mg PO HS 07/05/19 08/27/20 [id number]-tdjayopz-ftdapf ala 1 tablet PO DAILY 08/27/20 08/27/20 [Odefsey] Allergies Allergy/AdvReac Type Severity Reaction Status Date / Time No Known Allergies Allergy Verified 08/27/20 20:36 Review of Systems Review of Systems: All systems reviewed & are unremarkable except as noted in HPI and below Constitutional: Constitutional: Denies chills, Denies fever(s) and Denies night sweats Gastrointestinal: Gastrointestinal: Reports abdominal pain, Denies diarrhea, Denies nausea and Denies vomiting Genitourinary: Genitourinary: Denies abnormal vaginal bleeding, Reports dysuria and Denies vaginal discharge Musculoskeletal: Musculoskeletal: Denies back pain and Denies myalgias [facility] Past Medical History Medical History Abscess of hand, right (~06/2019) Due to cat bite. S/P I&D. Asthma Human immunodeficiency virus Diagnosed in 2005. Restless leg syndrome Surgical History Surgical History Status post section Status post hysterectomy Status post tubal ligation Family History Family History Mother Hypertension Diabetes mellitus Father Family history of coronary artery disease Social History Social History Social History: The patient lives in [place]. Her boyfriend has recently moved in. She has a 9-year-old and 13-year-old at home. She works at [employer], and she was just offered a job at [employer] working as an [employer]. She designates her mother, Bonnei Cantrell, as her surrogate decision maker and she wishes to be a full code. She drinks alcohol about 1 time a week, up to 1 bottle of wine. She Will smokes socially when drinking. She has a history of crack cocaine abuse and has been clean for about 12 years. She denies history of IV drug use. Gender identity (if verbalized by the patient): Female Sexual Orientation (if Verbalized by the Patient): Straight or Heterosexual Spiritual care concerns: No Agree to blood products: No Exam Narrative: Exam Narrative: GENERAL: Well-appearing, well-nourished, and in no acute distress. HEAD: Normocephalic, atraumatic. CHEST: Clear to auscultation. No respiratory distress. HEART: Regular rate and rhythm. Normal peripheral pulses. ABDOMEN: Soft, nontender, nondistended. Normal-appearing rectum without hemorrhoids or fluctuant mass. Mild tenderness along the right side of the rectum near the perineum. : Normal external genitalia. Swelling on the intravaginal aspect of the left vaginal wall. Very tender to palpation. No drainage. May represent Bartholin's gland cyst. EXTREMITIES: Normal range of motion. No edema. SKIN: Warm, dry, no rash. NEURO:
[2020-08-27 22:58] LABS: Add Urine Microscopic? YES; Appearance Urine Clear (Clear); Bilirubin Urine Negative (Negative); Blood Urine Trace-lysed (Negative); Color Urine Yellow (Yellow); Glucose Urine UA Negative (Negative); Ketones Urine 1+ mg/dL (Negative); Leukocyte Esterase Ur 2+ LEU/UL (Negative); Nitrate Urine Negative (Negative); Protein Urine Trace mg/dL (Negative); Specific Grav Ur >= 1.030 (1.001-1.035); Urobilinogen Urine 0.2 mg/dL (<2.0)
[2020-08-27 23:25] LABS: Anion Gap 8 mmol/L (8-16); Blood Urea Nitrogen 12 mg/dL (7-17); Calcium 9.1 mg/dL (8.4-10.2); Carbon Dioxide 25 mmol/L (22-30); Chloride 101 mmol/L (98-107); Estimated CRCL calculation 99 ml/min; Estimated Glomerular Filt Rate > 60; Glucose 108 mg/dL (65-105); Potassium 3.8 mmol/L (3.4-5.0); Sodium 134 mmol/L (137-145)
[2020-08-27 23:30] VITALS: BP 112/80; PULSE 86; RESP 19; O2SAT 99
[2020-08-28] MEDS: MORPHINE SULFATE (*CRX) 4 MG/ML INJ IV PUSH (00:35)
[2020-08-28 00:45] VITALS: BP 114/81; PULSE 100; RESP 12; O2SAT 99
== END 2020-08-28 00:45 | disposition home or self-care (01) ==
PROVIDERS: Emergency Provider Emergency Medicine; PCP Physician Assistant
DX: N89.8 Other specified noninflammatory disorders of vagina (principal); Z21 Asymptomatic human immunodeficiency virus [HIV] infection status; J45.909 Unspecified asthma, uncomplicated; G25.81 Restless legs syndrome; F17.200 Nicotine dependence, unspecified, uncomplicated
CPT/HCPCS: 36415; 56405; 56420; 74177; 80048; 81001; 81025; 85025; 85610; 85730; 87086; 87088; 96374; 99284; A9270; J2270; Q9967

== ENCOUNTER 2021-01-31 23:41 | Emergency (ER) | payer OTHER, SELFPAY ==
[2021-01-31 23:41] VITALS: BP 119/84; PULSE 106; RESP 18; TEMP 36.8; O2SAT 98
[2021-02-01 00:19] LABS: Basophils Percent Auto 0.6 % (0.2-1.2); Eosinophils Absolute Auto 0.2 K/mm3 (0-0.3); Eosinophils Percent Auto 2.5 % (0-4.4); Hematocrit 38.4 % (37.0-47.0); Hemoglobin 13.2 g/dL (12.0-15.0); Immature Granulocyte Absolute 0.02 K/mm3 (0.00-0.031); Immature Granulocyte Percent A 0.3 % (0-0.5); Lymphocytes Absolute Auto 2.29 K/mm3 (0.9-3.2); Mean Corpuscular HGB Conc 34.4 g/dl (32-36); Mean Corpuscular Hemoglobin 30.6 pg (26-34); Mean Corpuscular Volume 89.1 fl (80-100); Mean Platelet Volume 9.3 fl (7.4-10.4); Monocytes Absolute Auto 0.3 K/mm3 (0.1-0.6); Monocytes Percent Auto 4.7 % (2.6-8.5); Neutrophils Absolute Auto 4.3 K/mm3 (1.3-6.7); Neutrophils Percent Auto 59.9 % (45.5-73.1); Platelet Count Result 206 k/mm3 (150-375); Red Blood Count 4.31 M/mm3 (4.2-5.4); Red Cell Distribution Width 11.7 % (11.5-14.5); White Blood Count 7.2 K/mm3 (4.5-10.0)
--- NOTE | 2021-02-01 00:19 | ED.GENADULT ---
HPI - General Adult General Chief complaint: Alcohol Stated complaint: ETOH UNCONS @ BAR Time Seen by Provider: 01/31/21 23:50 History of Present Illness HPI narrative: Patient is a 35-year-old female presents to emergency department with chief complaint of alcohol intoxication. The patient reports has been out drinking all day and was at a local drinking establishment and slumped over. Patient has had some nausea with this denies any trauma. Related Data Home Medications Medication Instructions Recorded Confirmed albuterol sulfate [Ventolin HFA] 2 puff INHALATION Q4-6H PRN 07/04/19 08/28/20 ropinirole 0.5 mg PO HS 07/05/19 08/28/20 sznugikrmr-qpvwzawn-sfvwww ala 1 tablet PO DAILY 08/27/20 08/28/20 [Odefsey] Allergies Allergy/AdvReac Type Severity Reaction Status Date / Time No Known Allergies Allergy Verified 08/28/20 13:47 Review of Systems Review of Systems: A 10 system review of systems was completed on the patient and is negative except for what is stated in the HPI. Nursing and ancillary documentation was reviewed. [facility] Past Medical History Medical History Abscess of hand, right (~06/2019) Due to cat bite. S/P I&D. Asthma HPV test positive Human immunodeficiency virus Diagnosed in 2005. Restless leg syndrome Surgical History Surgical History H/O LEEP Status post section Status post hysterectomy Status post tubal ligation Family History Family History Mother Hypertension Diabetes mellitus Alcoholism Depression Father Alcoholism Hypertension Depression Heart disease Sibling Alcoholism Asthma Grandparent Diabetes mellitus Depression Heart disease Cerebrovascular accident Alcoholism Social History Social History Social History: The patient lives in [place]. Her boyfriend has recently moved in. She has a 9-year-old and 13-year-old at home. She works at [employer], and she was just offered a job at [employer] working as an [employer]. She designates her mother, Bonnie Cantrell, as her surrogate decision maker and she wishes to be a full code. She drinks alcohol about 1 time a week, up to 1 bottle of wine. She Will smokes socially when drinking. She has a history of crack cocaine abuse and has been clean for about 12 years. She denies history of IV drug use. Smoking status: Current every day smoker Alcohol intake: current Substance use: former Gender identity (if verbalized by the patient): Female Sexual Orientation (if Verbalized by the Patient): Straight or Heterosexual Spiritual care concerns: No Agree to blood products: No Exam Narrative: GENERAL: Well-appearing, well-nourished, and in no acute distress. HEAD: Normocephalic, atraumatic. EYES: PERRLA and EOMI. ENT: Nares clear, no rhinorrhea or epistaxis. Mucous membranes moist. NECK: Supple. CHEST: Clear to auscultation. No respiratory distress. HEART: Regular rate and rhythm. No murmur heard. Normal peripheral pulses. ABDOMEN: Soft, nontender, nondistended, normal active bowel sounds. EXTREMITIES: Normal range of motion. No edema. SKIN: Warm, dry, no rash. NEURO: No focal deficits. Alert and oriented x3. PSYCH: Normal mood and affect. Course Course Emergency Course: Patient has been resting comfortably and is able to ambulate with minimal assistance at this time she was able to find a sober ride to be able to transport her home and take custody of Vital Signs Vital signs: Vital Signs Temperature 36.8 C 01/31/21 23:41 Pulse Rate 106 H 01/31/21 23:41 Respiratory Rate 18 01/31/21 23:41 Blood Pressure 119/84 01/31/21 23:41 Pulse Oximetry 98 01/31/21 23:41 Temperatu
[2021-02-01 00:28] LABS: Alanine Aminotransferase 14 U/L (4-35); Albumin Level 4.6 g/dL (3.5-5.1); Alkaline Phosphatase 55 U/L (38-126); Anion Gap 17 mmol/L (8-16); Aspartate Amino Transferase 22 U/L (14-36); Bilirubin,Total 0.4 mg/dL (0.2-1.3); Blood Urea Nitrogen 12 mg/dL (7-17); Calcium 8.6 mg/dL (8.4-10.2); Carbon Dioxide 18 mmol/L (22-30); Chloride 106 mmol/L (98-107); Estimated CRCL calculation 92 ml/min; Estimated Glomerular Filt Rate > 60; Glucose 125 mg/dL (65-110); Potassium 3.6 mmol/L (3.4-5.0); Sodium 141 mmol/L (137-145)
[2021-02-01 00:49] LABS: Ethanol 325 mg/dL (<10)
[2021-02-01 01:27] VITALS: BP 120/84; PULSE 88; RESP 18; O2SAT 100
[2021-02-01] MEDS: ONDANSETRON INJ 4 MG/2 ML VIAL IV PUSH (01:27)
[2021-02-01] MEDS: SODIUM CHLORIDE 0.9% IV 1,000 ML 999 ML IV CONT (01:27)
--- NOTE | 2021-02-01 03:09 | PC.NURSE ---
Pt found on floor by tech. This RN was notified. Pt was trying to get out of bed and fell. Pt denies hitting head or any pain. Pt helped back in bed and states I'm fine, I'm fine . EDP Dr. Johansen notified of incident as well as storage battery charger.
--- NOTE | 2021-02-01 03:42 | PC.NURSE ---
erp at bedside for fall assessment
[2021-02-01 04:19] VITALS: BP 102/55; PULSE 101; RESP 14; O2SAT 100
[2021-02-01 06:29] VITALS: BP 113/84; PULSE 99; RESP 16; O2SAT 100
== END 2021-02-01 06:31 | disposition home or self-care (01) ==
PROVIDERS: Emergency Provider Emergency Medicine; PCP Physician Assistant
DX: F10.920 Alcohol use, unspecified with intoxication, uncomplicated (principal); J45.909 Unspecified asthma, uncomplicated; G25.81 Restless legs syndrome; Z21 Asymptomatic human immunodeficiency virus [HIV] infection status; F17.200 Nicotine dependence, unspecified, uncomplicated
CPT/HCPCS: 36415; 80053; 80307; 85025; 96361; 96374; 99284; J2405; J7030

== ENCOUNTER 2021-05-14 19:25 | Emergency (ER) | payer OTHER, SELFPAY ==
[2021-05-14 19:58] VITALS: BP 115/84; PULSE 80; RESP 16; TEMP 36.2; O2SAT 100
--- NOTE | 2021-05-14 20:07 | ED.URI ---
HPI - URI/Sore Throat General Stated Complaint: Lt earache Time Seen by Provider: 05/14/21 20:07 Source: patient and RN notes reviewed Mode of arrival: ambulatory Limitations: no limitations History of Present Illness HPI Narrative: 35-year-old female with history of HIV and asthma presents with concern for pain to the left side of the face, she is unsure if it is originating from the ear or the tooth. She reports taking ibuprofen without relief. She denies rhinorrhea or nasal congestion. Denies difficulty hearing. She denies any dental trauma. She reports history of problems with her teeth. MD elicited complaint: other (Earache) Related Data Home Medications Medication Instructions Recorded Confirmed albuterol sulfate [Ventolin HFA] 2 puff INHALATION Q4-6H PRN 07/04/19 08/28/20 ropinirole 0.5 mg PO HS 07/05/19 08/28/20 [id number]-srutmksa-xvybip ala 1 tablet PO DAILY 08/27/20 08/28/20 [Odefsey] Allergies Allergy/AdvReac Type Severity Reaction Status Date / Time No Known Allergies Allergy Verified 08/28/20 13:47 Review of Systems Review of Systems: CONSTITUTIONAL: Denies malaise, chills, sweats, or fever. EYES: Denies visual changes, redness, or discharge. ENT: Denies rhinorrhea, congestion, sinus pain, and sore throat. Left ear or tooth pain. CARDIOVASCULAR: Denies chest pain, palpitations, or edema. RESPIRATORY: Denies cough. Denies dyspnea. GASTROINTESTINAL: Denies abdominal pain, nausea, vomiting, diarrhea SKIN: Denies rash or itching. MUSCULOSKELETAL: Denies myalgia. NEUROLOGIC: Denies headache. All systems reviewed & are unremarkable except as noted in HPI and below PMFSH Past Medical History Medical History Abscess of hand, right (~06/2019) Due to cat bite. S/P I&D. Asthma HPV test positive Human immunodeficiency virus Diagnosed in 2005. Restless leg syndrome Surgical History Surgical History H/O LEEP Status post section Status post hysterectomy Status post tubal ligation Family History Family History Mother Hypertension Diabetes mellitus Alcoholism Depression Father Alcoholism Hypertension Depression Heart disease Sibling Alcoholism Asthma Grandparent Diabetes mellitus Depression Heart disease Cerebrovascular accident Alcoholism Social History Social History Social History: The patient lives in [place]. Her boyfriend has recently moved in. She has a 9-year-old and 13-year-old at home. She works at [employer], and she was just offered a job at [employer] working as an [employer]. She designates her mother, Bonnie Cantrell, as her surrogate decision maker and she wishes to be a full code. She drinks alcohol about 1 time a week, up to 1 bottle of wine. She Will smokes socially when drinking. She has a history of crack cocaine abuse and has been clean for about 12 years. She denies history of IV drug use. Smoking status: Current every day smoker Alcohol intake: current Substance use: former Gender identity (if verbalized by the patient): Female Sexual Orientation (if Verbalized by the Patient): Straight or Heterosexual Spiritual care concerns: No Agree to blood products: No Comments At time of signature, agree with nursing past medical, surgical, social and family history. There is no relevant family history pertinent to the presenting complaint Exam Narrative: GENERAL: Well-appearing, well-nourished, and in no acute distress. HEAD: Normocephalic EYES: PERRLA, conjunctivae clear ENT: Nares clear. Mucous membranes moist. TM pearly lagunas with sharp light reflex bilaterally; no tragal tenderness. Oropharynx not erythematous without lesions. Tonsils no
== END 2021-05-14 20:17 | disposition home or self-care (01) ==
PROVIDERS: Emergency Provider Nurse Practitioner; PCP Physician Assistant
DX: K08.89 Other specified disorders of teeth and supporting structures (principal); J45.909 Unspecified asthma, uncomplicated; Z21 Asymptomatic human immunodeficiency virus [HIV] infection status; G25.81 Restless legs syndrome
CPT/HCPCS: 99213; G0463

== ENCOUNTER 2021-10-21 18:55 | Emergency (ER) | payer MEDICAID, SELFPAY ==
--- NOTE | ~2021-10-21 | CT_ITS ---
EXAMINATION: CTA chest PE protocol DATE: 10/21/2021 20:54 INDICATION: juan manuel, low grade fevers, elevated D-dimer TECHNIQUE: Computed tomography angiography (CTA) of the chest was performed with 100 mL Omnipaque-350 intravenous contrast timed to evaluate the pulmonary arteries. Coronal maximum intensity projection 3D-reconstructions were created by the technologist. The dose-length product (DLP) was 248.88 mGy-cm. Automated exposure control and iterative reconstruction technique were employed. COMPARISON: X-ray chest, same date. FINDINGS: Study quality: Adequate. Pulmonary arteries: No pulmonary emboli detected. Thoracic aorta: Normal. Lung parenchyma and airways: Peribronchovascular reticular and groundglass opacities in the mid and u pper lungs. Thoracic inlet, axillae and chest wall: Unremarkable. Mediastinum: Normal. Heart and pericardium: Normal. Coronary artery calcifications: Absent. Pleura: Unremarkable. Upper abdomen: No significant finding. Bones: No acute osseous finding. IMPRESSION: No CT evidence of acute pulmonary embolus. Pulmonary opacities may represent the sequela of recent pu lmonary infection, including atypical/viral infection. Reviewed, dictated and finalized at location K. IMPRESSION: No CT evidence of acute pulmonary embolus. Pulmonary opacities may represent th e sequela of recent pulmonary infection, including atypical/viral infection.
--- NOTE | ~2021-10-21 | XR_ITS ---
EXAMINATION: XR chest 1V portable Exam Date/Time: 10/21/2021 19:45 CDT HISTORY: cough/ SOB/ FEVER X 2 WKS Comparison: Same date at 1:55 PM. RESULT: Lines, tubes, and devices: None. Lungs and pleura: Clear. Cardiomediastinal silhouette: Stable cardiomediastinal silhouette. Other: No acute osseous or upper abdominal finding. IMPRESSION: No acute cardiopulmonary process. Reviewed, dictated and finalized at location K.
[2021-10-21 19:00] VITALS: BP 126/95; PULSE 113; RESP 18; TEMP 37.1; O2SAT 98
--- NOTE | 2021-10-21 19:16 | ECG_ITS ---
Measurements Intervals [place] Rate: 121 P: 24 WV: 155 QRS: 64 QRSD: 83 T: 17 QT: 296 QTc: 421 Interpretive Statements SINUS TACHYCARDIA ABNORMAL RHYTHM ECG NO PREVIOUS ECG AVAILABLE FOR COMPARISON Electronically Signed On 10-21-2021 22:22:14 CDT by Chanel Man M.D.
--- NOTE | 2021-10-21 19:20 | PC.NURSE ---
c/o fever off and on 2 weeks, cough and dyspnea
--- NOTE | 2021-10-21 19:36 | ED.URI ---
HPI - URI/Sore Throat General Chief Complaint: Upper Respiratory Infection Stated Complaint: sob Time Seen by Provider: 10/21/21 19:11 History of Present Illness HPI Narrative: 36-year-old female with history of HIV who has not been on medications presents with 2 weeks of persistent cough and difficulty breathing, denies any nausea or vomiting or diarrhea, any sick contacts that she knows of, denies any chest pain unless she is taking deep breaths. Has a history of asthma, has not improved with inhalers. Related Data Home Medications Medication Instructions Recorded Confirmed albuterol sulfate 90 mcg/actuation 2 puff inhalation Q4-6H PRN 07/04/19 08/28/20 aerosol inhaler (Ventolin HFA) Shortness Of Breath ropinirole 0.5 mg tablet 0.5 mg PO HS 07/05/19 08/28/20 emtricitabine 200 mg-rilpivirine 1 tablet PO DAILY 08/27/20 08/28/20 25 mg-tenofovir alafenam 25 mg tablet (Odefsey) Allergies Allergy/AdvReac Type Severity Reaction Status Date / Time No Known Allergies Allergy Verified 08/28/20 13:47 Review of Systems Review of Systems: CONST: Fevers HEENT: No sore throat C/V: Chest pain with cough RESP: Cough and difficulty breathing GI: No nausea, vomiting or diarrhea : No dysuria. M/S: No joint pain. SKIN: No rash. NEURO: [No headache or focal numbness or weakness] PSYCH: [No depression] PMFSH Past Medical History Medical History Abscess of hand, right (~06/2019) Due to cat bite. S/P I&D. Asthma HPV test positive Human immunodeficiency virus Diagnosed in 2005. Restless leg syndrome Surgical History Surgical History H/O LEEP Status post section Status post hysterectomy Status post tubal ligation Family History Family History Mother Hypertension Diabetes mellitus Alcoholism Depression Father Alcoholism Hypertension Depression Heart disease Sibling Alcoholism Asthma Grandparent Diabetes mellitus Depression Heart disease Cerebrovascular accident Alcoholism Social History Social History Social History: The patient lives in [place]. Her boyfriend has recently moved in. She has a 9-year-old and 13-year-old at home. She works at [employer], and she was just offered a job at [employer] working as an [employer]. She designates her mother, Bonnie Cantrell, as her surrogate decision maker and she wishes to be a full code. She drinks alcohol about 1 time a week, up to 1 bottle of wine. She Will smokes socially when drinking. She has a history of crack cocaine abuse and has been clean for about 12 years. She denies history of IV drug use. Smoking status: Current every day smoker Alcohol intake: current Substance use: former Gender identity (if verbalized by the patient): Female Sexual Orientation (if Verbalized by the Patient): Straight or Heterosexual Spiritual care concerns: No Agree to blood products: No Exam Narrative: EXAMINATION OF ORGAN SYSTEMS/BODY AREAS: Constitutional: Vital signs per nursing GENERAL: Dyspneic HEAD: Normal with no signs of head trauma. EYES: EOMI, conjunctiva normal ENT: Hearing grossly intact LUNGS: Clear to auscultation bilaterally HEART: Tachycardic ABD: [Soft], [nontender to palpation] EXT: Normal range of motion SKIN: [No rashes or lesions.] NEURO: [Alert and oriented x 3. No gross focal sensory or strength deficits.] PSYCH: Normal affect Course Vital Signs Vital signs: Vital Signs Temperature 98.7 F 10/21/21 19:00 Pulse Rate 113 H 10/21/21 19:00 Respiratory Rate 18 10/21/21 19:00 Blood Pressure 126/95 H 10/21/21 19:00 Pulse Oximetry 98 10/21/21 19:00 Oxygen Delivery Room Air 10/21/21 19:00 Temperature 97.6 F 10/21/21 21:47 Pulse Rate
[2021-10-21 19:55] LABS: Basophils Percent Auto 0.5 % (0.2-1.2); Eosinophils Absolute Auto 0.3 K/mm3 (0-0.3); Eosinophils Percent Auto 4.2 % (0-4.4); Hematocrit 38.6 % (37.0-47.0); Hemoglobin 13.1 g/dL (12.0-15.0); Immature Granulocyte Absolute 0.01 K/mm3 (0.00-0.031); Immature Granulocyte Percent A 0.2 % (0-0.5); Lymphocytes Absolute Auto 0.64 K/mm3 (0.9-3.2); Lymphocytes Percent Auto 10.8 % (18.3-44.2); Mean Corpuscular HGB Conc 33.9 g/dl (32-36); Mean Corpuscular Hemoglobin 29.8 pg (26-34); Mean Corpuscular Volume 87.7 fl (80-100); Mean Platelet Volume 10.3 fl (7.4-10.4); Monocytes Absolute Auto 0.3 K/mm3 (0.1-0.6); Monocytes Percent Auto 5.6 % (2.6-8.5); Neutrophils Absolute Auto 4.7 K/mm3 (1.3-6.7); Neutrophils Percent Auto 78.7 % (45.5-73.1); Platelet Count Result 155 k/mm3 (150-375); Red Cell Distribution Width 12.1 % (11.5-14.5); White Blood Count 5.9 K/mm3 (4.5-10.0)
[2021-10-21 20:07] LABS: Anion Gap 10 mmol/L (8-16); Blood Urea Nitrogen 12 mg/dL (7-17); Calcium 9.1 mg/dL (8.4-10.2); Carbon Dioxide 25 mmol/L (22-30); Chloride 100 mmol/L (98-107); Estimated CRCL calculation 84 ml/min; Estimated Glomerular Filt Rate > 60; Glucose 103 mg/dL (65-110); Magnesium 1.9 mg/dL (1.6-2.3); Potassium 4.1 mmol/L (3.4-5.0); Sodium 135 mmol/L (137-145)
[2021-10-21 20:14] LABS: D Dimer 0.55 ug/mL (<0.48)
--- NOTE | 2021-10-21 20:19 | PC.NURSE ---
urine preg canceled due to PMH of hyster
[2021-10-21 20:20] VITALS: BP 118/70; PULSE 70; RESP 16; TEMP 36.1; O2SAT 100
[2021-10-21 20:32] LABS: Influenza A QL RT-PCR Negative (Negative); Influenza B QL RT-PCR Negative (Negative); SARS-CoV-2 RNA PCR Negative
[2021-10-21 21:47] VITALS: BP 116/68; PULSE 68; RESP 16; TEMP 36.4; O2SAT 98
== END 2021-10-21 21:50 | disposition home or self-care (01) ==
PROVIDERS: Emergency Provider Emergency Medicine; PCP Physician Assistant
DX: J06.9 Acute upper respiratory infection, unspecified (principal); Z20.822 Contact with and (suspected) exposure to COVID-19; Z21 Asymptomatic human immunodeficiency virus [HIV] infection status; J45.909 Unspecified asthma, uncomplicated; G25.81 Restless legs syndrome; F17.210 Nicotine dependence, cigarettes, uncomplicated
CPT/HCPCS: 36415; 71045; 71275; 80048; 83735; 85025; 85380; 87040; 87502; 93005; 99284; C9803; Q9967; U0003; U0005

== ENCOUNTER 2021-10-27 07:34 | Emergency (ER) | payer MEDICAID, SELFPAY ==
[2021-10-27] VITALS (13 sets, daily range): BP systolic 93–121; BP diastolic 56–86; PULSE 89–110; RESP 16–28; TEMP 37.1; O2SAT 97–99
--- NOTE | ~2021-10-27 | XR_ITS ---
XR chest 1V portable DATE: 10/27/2021 08:32 INDICATION: Shortness of breath TECHNIQUE: Portable upright AP chest on 10/27/2021 at 0826 hours COMPARISON: 10/21/2021 CT pulmonary scan FINDINGS: There are extensive patchy infiltrates involving particularly the mid and lower lung zones suggesting bilateral pneumonia. No pleural effusion or pulmonary vascular congestion or pneumothorax. Normal heart size. IMPRESSION: Patchy bilateral pulmonary infiltrates suggesting bilateral pneumonia Reviewed, dictated and finalized at location A. IMPRESSION: Patchy bilateral pulmonary infiltrates suggesting bilateral pneumon ia
--- NOTE | 2021-10-27 07:50 | ED.ASTHMA ---
HPI - Asthma General Chief Complaint: Asthma Stated Complaint: difficulty breathing/asthmatic Time Seen by Provider: 10/27/21 07:39 History of Present Illness HPI Narrative: pt returns with same sob fevers which started 2.5 weeks ago doesn't smoke no sick contacts or travel says no covid vaccine but got flu shot says no new issues, using inhalers, nebs and not helping says nausea now and last motrin 3am no other new cp/v/d/neuro chagnes says here last labs ekg cxr all fine and covid flu neg hasn't seen her doc and sent home with no prednisone or abx per pt not preg not diabetic Related Data Home Medications Medication Instructions Recorded Confirmed albuterol sulfate 90 mcg/actuation inhalation 10/27/21 aerosol inhaler citalopram 40 mg tablet tablet 10/27/21 darunavir ethanolate 800 mg tablet tablet 10/27/21 (Prezista) doravirine 100 mg tablet (Pifeltro) tablet PO 10/27/21 ritonavir 100 mg tablet tablet PO 10/27/21 ropinirole 0.5 mg tablet mg 10/27/21 sulfamethoxazole 800 tablet 10/27/21 mg-trimethoprim 160 mg tablet tenofovir disoproxil fumarate 300 tablet 10/27/21 mg tablet Allergies Allergy/AdvReac Type Severity Reaction Status Date / Time No Known Allergies Allergy Verified 10/27/21 07:50 Review of Systems Review of Systems: CONSTITUTIONAL: Denies chills, or sweats. EYES: Denies visual changes, redness, or discharge. ENT: Denies rhinorrhea, congestion, sore throat, or otalgia. CARDIOVASCULAR: Denies chest pain, palpitations, or edema. RESPIRATORY: still sob cough and fever GASTROINTESTINAL: Denies abdominal pain, nausea, vomiting, or diarrhea. GENITOURINARY: Denies dysuria or hematuria. SKIN: Denies rash or itching. MUSCULOSKELETAL: Denies back pain, joint pain, or myalgia. NEUROLOGIC: Denies headache, numbness, or weakness. PSYCHIATRIC: Denies anxiety or depression. [facility] Past Medical History Medical History Abscess of hand, right (~06/2019) Due to cat bite. S/P I&D. Asthma HPV test positive Human immunodeficiency virus Diagnosed in 2005. Restless leg syndrome Surgical History Surgical History H/O LEEP Status post section Status post hysterectomy Status post tubal ligation Family History Family History Mother Hypertension Diabetes mellitus Alcoholism Depression Father Alcoholism Hypertension Depression Heart disease Sibling Alcoholism Asthma Grandparent Diabetes mellitus Depression Heart disease Cerebrovascular accident Alcoholism Social History Social History Social History: The patient lives in [place]. Her boyfriend has recently moved in. She has a 9-year-old and 13-year-old at home. 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 She designates her mother, Bonnie Cantrell, as her surrogate decision maker and she wishes to be a full code. She drinks alcohol about 1 time a week, up to 1 bottle of wine. She Will smokes socially when drinking. She has a history of crack cocaine abuse and has been clean for about 12 years. She denies history of IV drug use. Smoking status: Current every day smoker Alcohol intake: current Substance use: former Gender identity (if verbalized by the patient): Female Sexual Orientation (if Verbalized by the Patient): Straight or Heterosexual Spiritual care concerns: No Agree to blood products: No Exam Narrative: APPEARANCE: Well appearing, no pain in distress, well-nourished. Head normocephalic atraumtaic. EYES: PERRLA/EOMI, conjunctivae very clear. NOSE: Normal no drainage EARS:TMS clear Raman Diane, with good light reflex. THROAT: Pharynx clear, no exudate. NECK: Supple. No adenopathy, no masses
[2021-10-27] MEDS: ONDANSETRON INJ 4 MG/2 ML VIAL IV PUSH (08:03)
[2021-10-27] MEDS: methylPREDNISolone SOD SUCC 125 MG VIAL IV PUSH (08:03)
[2021-10-27] MEDS: diphenhydrAMINE HCl INJ 50 MG/ML VIAL IV PUSH (08:04)
[2021-10-27] MEDS: ACETAMINOPHEN 325 MG TABLET 650 MG PO (08:04)
[2021-10-27] MEDS: ALBUTEROL SULFATE NEB 2.5 MG/3 ML INH 5 MG INHALATION ×3 (08:07→09:13)
[2021-10-27 08:14] LABS: Alveolar/Arterial O2 Gradient 53.3 mmHg; Base Excess ABG 0.2 mEq/l (+/-2.0); Fractional Inspired Oxygen 21 %; HCO3 ABG 22.6 mEq/l (22.0-26.0); Oxygen Content ABG 16.6 %vol (16.0-22.0); Oxygen Saturation ABG 93.4 % (95.0-100.0); Oxyhemoglobin 91.6 % THb (90.0-100.0); PO2 ABG 60.5 mmHg (80.0-100.0); PO2 FiO2 Ratio Arterial Blood 2.88 %; Total Hemoglobin 12.9 g/dL (12.0-18.0); pH ABG 7.494 (7.350-7.450)
[2021-10-27 08:15] LABS: Device ROOM AIR; Modified Allen's Test Pass; Site Drawn RIGHT RADIAL
[2021-10-27 09:15] LABS: Basophils Absolute Auto 0.1 K/mm3 (0.0-0.1); Eosinophils Absolute Auto 0.2 K/mm3 (0-0.3); Eosinophils Percent Auto 4.6 % (0-4.4); Hematocrit 35.5 % (37.0-47.0); Hemoglobin 12.6 g/dL (12.0-15.0); Immature Granulocyte Absolute 0.01 K/mm3 (0.00-0.031); Immature Granulocyte Percent A 0.2 % (0-0.5); Lymphocytes Absolute Auto 0.47 K/mm3 (0.9-3.2); Lymphocytes Percent Auto 9.5 % (18.3-44.2); Mean Corpuscular HGB Conc 35.5 g/dl (32-36); Mean Corpuscular Hemoglobin 30.7 pg (26-34); Mean Corpuscular Volume 86.4 fl (80-100); Mean Platelet Volume 10.5 fl (7.4-10.4); Monocytes Absolute Auto 0.3 K/mm3 (0.1-0.6); Neutrophils Absolute Auto 3.9 K/mm3 (1.3-6.7); Neutrophils Percent Auto 78.7 % (45.5-73.1); Platelet Count Result 191 k/mm3 (150-375); Red Blood Count 4.11 M/mm3 (4.2-5.4); Red Cell Distribution Width 11.9 % (11.5-14.5)
== END 2021-10-27 10:15 | disposition home or self-care (01) ==
PROVIDERS: Emergency Provider Emergency Medicine; PCP Physician Assistant
DX: J18.9 Pneumonia, unspecified organism (principal); J45.909 Unspecified asthma, uncomplicated; Z21 Asymptomatic human immunodeficiency virus [HIV] infection status; G25.81 Restless legs syndrome; Z28.310 Unvaccinated for COVID-19; F17.200 Nicotine dependence, unspecified, uncomplicated
CPT/HCPCS: 36415; 36600; 71045; 82805; 85025; 94640; 96365; 96375; 99284; A9270; J0696; J1200; J2405; J2930

== ENCOUNTER 2022-04-15 10:14 | Emergency (ER) | payer OTHER, MEDICAID, SELFPAY ==
[2022-04-15 10:26] VITALS: BP 121/89; PULSE 86; RESP 16; TEMP 36.6; O2SAT 99
--- NOTE | 2022-04-15 11:00 | ED.URI ---
HPI - URI/Sore Throat General Chief Complaint: Upper Respiratory Infection Stated Complaint: Fever, Cough Time Seen by Provider: 04/15/22 11:15 Source: patient and RN notes reviewed Mode of arrival: ambulatory Limitations: no limitations History of Present Illness HPI Narrative: 36-year-old female presents concern for 6 day history of fever, cough, body aches and general malaise. Reports exposed influenza A. Reports she has been taking Mucinex multi symptom cold medicine with some relief MD elicited complaint: cough and sore throat Related Data Home Medications Medication Instructions Recorded Confirmed citalopram 40 mg tablet tablet 10/27/21 darunavir ethanolate 800 mg tablet tablet 10/27/21 (Prezista) doravirine 100 mg tablet (Pifeltro) tablet PO 10/27/21 ritonavir 100 mg tablet tablet PO 10/27/21 ropinirole 0.5 mg tablet mg 10/27/21 Allergies Allergy/AdvReac Type Severity Reaction Status Date / Time No Known Allergies Allergy Verified 04/15/22 10:40 Review of Systems Review of Systems: CONSTITUTIONAL: Reports malaise, fever. EYES: Denies visual changes, redness, or discharge. ENT: Reports rhinorrhea, congestion, sore throat. Denies sinus pain, otalgia CARDIOVASCULAR: Denies chest pain, palpitations, or edema. RESPIRATORY: Reports cough. Denies dyspnea. GASTROINTESTINAL: Denies abdominal pain, nausea, vomiting, diarrhea SKIN: Denies rash or itching. MUSCULOSKELETAL: Reports myalgia. NEUROLOGIC: Reports headache. All systems reviewed & are unremarkable except as noted in HPI and below PMFSH Past Medical History Medical History Abscess of hand, right (~06/2019) Due to cat bite. S/P I&D. Asthma HPV test positive Human immunodeficiency virus Diagnosed in 2005. Restless leg syndrome Surgical History Surgical History H/O LEEP Status post section Status post hysterectomy Status post tubal ligation Family History Family History Mother Hypertension Diabetes mellitus Alcoholism Depression Father Alcoholism Hypertension Depression Heart disease Sibling Alcoholism Asthma Grandparent Diabetes mellitus Depression Heart disease Cerebrovascular accident Alcoholism Social History Social History Social History: The patient lives in [place]. Her boyfriend has recently moved in. She has a 9-year-old and 13-year-old at home. She works at [employer], and she was just offered a job at [employer] working as an [employer]. She designates her mother, Bonnie Cantrell, as her surrogate decision maker and she wishes to be a full code. She drinks alcohol about 1 time a week, up to 1 bottle of wine. She Will smokes socially when drinking. She has a history of crack cocaine abuse and has been clean for about 12 years. She denies history of IV drug use. Smoking status: Current every day smoker Alcohol intake: current Substance use: former Gender identity (if verbalized by the patient): Female Sexual Orientation (if Verbalized by the Patient): Straight or Heterosexual Spiritual care concerns: No Agree to blood products: No Comments At time of signature, agree with nursing past medical, surgical, social and family history. There is no relevant family history pertinent to the presenting complaint Exam Narrative: GENERAL: Nontoxic-appearing and in no acute distress. HEAD: Normocephalic EYES: PERRLA, conjunctivae clear ENT: Nares clear, turbinates edematous and erythematous, clear discharge. Mucous membranes moist. TM pearly lagunas with dull light reflex bilaterally; no tragal tenderness. Oropharynx not erythematous without lesions. Tonsils not enlarged and without exudate, no drooling, no hoarseness, no trismus, uvula midline
== END 2022-04-15 11:33 | disposition home or self-care (01) ==
PROVIDERS: Emergency Provider Nurse Practitioner; PCP Physician Assistant
DX: J11.1 Influenza due to unidentified influenza virus with other respiratory manifestations (principal); F17.200 Nicotine dependence, unspecified, uncomplicated; J45.909 Unspecified asthma, uncomplicated; G47.30 Sleep apnea, unspecified; Z21 Asymptomatic human immunodeficiency virus [HIV] infection status
CPT/HCPCS: 87804; 99213; G0463

== ENCOUNTER 2022-06-16 08:03 | Emergency (ER) | payer OTHER, MEDICAID, SELFPAY ==
--- NOTE | ~2022-06-16 | CT_ITS ---
EXAMINATION: CT facial bones w con DATE: 06/16/2022 INDICATION: Possible abscess TECHNIQUE: Computed tomography (CT) of the facial bones and maxillofacial region was performed with 7 5 cc of Omnipaque 350 intravenous contrast. The dose-length product (DLP) was 305.96 mGy-cm. Automate d exposure control and iterative reconstruction technique were employed. COMPARISON: None. FINDINGS: There is mild soft tissue inflammatory change of the upper lip. No focal abscess is identif ied. There is mild mucosal thickening of the paranasal sinuses. There is an increase in number of non pathologically enlarged cervical lymph nodes. The globes and orbits are normal. IMPRESSION: 1. Mild soft tissue inflammatory change of the upper lip without identifiable abscess Reviewed, dictated and finalized at location B. GE HISTOTECHNOLOGIST IMPRESSION: 1. Mild soft tissue inflammatory change of the upper lip without identifiable a bscess
[2022-06-16 08:06] VITALS: BP 137/99; PULSE 91; RESP 18; TEMP 36.4; O2SAT 100
--- NOTE | 2022-06-16 09:12 | PC.NURSE ---
2mg of Morphine given IV per EDP Jefferson. KISHA.
[2022-06-16 11:23] LABS: Alanine Aminotransferase 22 U/L (6-35); Albumin Level 3.6 g/dL (3.5-5.1); Alkaline Phosphatase 90 U/L (38-126); Anion Gap 7 mmol/L (8-16); Aspartate Amino Transferase 22 U/L (14-36); Bilirubin,Total 0.6 mg/dL (0.2-1.3); Blood Urea Nitrogen 9 mg/dL (7-17); Calcium 8.5 mg/dL (8.4-10.2); Carbon Dioxide 25 mmol/L (22-30); Chloride 104 mmol/L (98-107); Estimated CRCL calculation 117 ml/min; Estimated Glomerular Filt Rate > 60; Glucose 110 mg/dL (65-110); Potassium 3.6 mmol/L (3.4-5.0); Sodium 136 mmol/L (137-145)
[2022-06-16 11:33] LABS: Hematocrit 32.4 % (37.0-47.0); Hemoglobin 11.2 g/dL (12.0-15.0); Mean Corpuscular HGB Conc 34.6 g/dl (32-36); Mean Corpuscular Hemoglobin 30.1 pg (26-34); Mean Corpuscular Volume 87.1 fl (80-100); Platelet Count Result 87 k/mm3 (150-375); Red Blood Count 3.72 M/mm3 (4.2-5.4); Red Cell Distribution Width 13.5 % (11.5-14.5)
[2022-06-16 11:34] LABS: Basophils Percent Auto 0.4 % (0.2-1.2); Eosinophils Percent Auto 4.7 % (0-4.4); Immature Granulocyte Absolute 0.01 K/mm3 (0.00-0.031); Immature Granulocyte Percent A 0.2 % (0-0.5); Lymphocytes Absolute Auto 0.41 K/mm3 (0.9-3.2); Lymphocytes Percent Auto 8.4 % (18.3-44.2); Mean Platelet Volume 12.5 fl (7.4-10.4); Monocytes Percent Auto 7.8 % (2.6-8.5); Neutrophils Absolute Auto 3.8 K/mm3 (1.3-6.7); Neutrophils Percent Auto 78.5 % (45.5-73.1)
[2022-06-16 11:35] LABS: Eosinophils Absolute Auto 0.2 K/mm3 (0-0.3); Monocytes Absolute Auto 0.4 K/mm3 (0.1-0.6); White Blood Count 4.9 K/mm3 (4.5-10.0)
[2022-06-16 13:11] VITALS: BP 137/104; PULSE 94; RESP 18; O2SAT 100
[2022-06-16] MEDS: HYDROcodone/acetaminophen (*CRX) 5-325 MG TABLET 1 TAB PO (14:30)
[2022-06-16] MEDS: CLINDAMYCIN HCL 150 MG CAP 300 MG PO (14:30)
--- NOTE | 2022-06-16 15:10 | ED.DENTAL ---
HPI - Dental/Oral General Chief complaint: Dental/Oral Stated complaint: lip infection Time Seen by Provider: 06/16/22 08:06 Source: RN notes reviewed History of Present Illness HPI Narrative: Patient presents emergency department from home for lip swelling. Patient states that she is has been having swelling of her upper lip into her cheeks for the past 4 days she states that she initially had gone to her dentist and was placed on amoxicillin and then gone to the emergency department on Tuesday and was placed on Augmentin which she has been taking she states she continues to have pain to her lip as well as swelling she denies any fevers or chills she denies any shortness of breath she denies any throat pain or inability to swallow states she does have a history of HIV and is not followed by infectious disease and is not on any antivirals states that she has had no chest pain or shortness of breath Related Data Home Medications Medication Instructions Recorded Confirmed citalopram 40 mg tablet tablet 10/27/21 darunavir ethanolate 800 mg tablet tablet 10/27/21 (Prezista) doravirine 100 mg tablet (Pifeltro) tablet PO 10/27/21 ritonavir 100 mg tablet tablet PO 10/27/21 ropinirole 0.5 mg tablet mg 10/27/21 Allergies Allergy/AdvReac Type Severity Reaction Status Date / Time No Known Allergies Allergy Verified 04/15/22 10:40 Review of Systems Review of Systems: Gen.: Denies fevers or chills Eyes: Denies eye pain or visual change ENT: See HPI Respiratory: Denies shortness of breath or cough CV: Denies chest pain or palpitations GI: Denies abdominal pain nausea, emesis Musculoskeletal: Denies back pain or muscle pain Neuro: Denies numbness, tingling, weakness or focal weakness Skin: Denies rash Except as documented, all other systems reviewed and negative [facility], [facility] Past Medical History Medical History Abscess of hand, right (~06/2019) Due to cat bite. S/P I&D. Asthma HPV test positive Human immunodeficiency virus Diagnosed in 2005. Restless leg syndrome Surgical History Surgical History H/O LEEP Status post section Status post hysterectomy Status post tubal ligation Family History Family History Mother Hypertension Diabetes mellitus Alcoholism Depression Father Alcoholism Hypertension Depression Heart disease Sibling Alcoholism Asthma Grandparent Diabetes mellitus Depression Heart disease Cerebrovascular accident Alcoholism Social History Social History Social History: The patient lives in [place]. Her boyfriend has recently moved in. She has a 9-year-old and 13-year-old at home. She works at [employer], and she was just offered a job at [employer] working as an [employer]. She designates her mother, Bonnie Cantrell, as her surrogate decision maker and she wishes to be a full code. She drinks alcohol about 1 time a week, up to 1 bottle of wine. She Will smokes socially when drinking. She has a history of crack cocaine abuse and has been clean for about 12 years. She denies history of IV drug use. Smoking status: Current every day smoker Alcohol intake: current Substance use: former Living arrangements: with family Gender identity (if verbalized by the patient): Female Sexual Orientation (if Verbalized by the Patient): Straight or Heterosexual Spiritual care concerns: No Agree to blood products: No Exam Narrative: APPEARANCE: No acute distress, nontoxic, resting in bed EYES: EOMI, PERRL HEENT: Normocephalic, atraumatic, there is mild swelling of the upper lip with mild tenderness there is no fluctuance there is minimal overlying erythema no swelling of the cheeks noted no swelling of the lower lip
== END 2022-06-16 15:30 | disposition home or self-care (01) ==
PROVIDERS: Emergency Provider Emergency Medicine; PCP Physician Assistant
DX: K13.0 Diseases of lips (principal); F17.210 Nicotine dependence, cigarettes, uncomplicated; J45.909 Unspecified asthma, uncomplicated; B20 Human immunodeficiency virus [HIV] disease
CPT/HCPCS: 36415; 70487; 80053; 81025; 85025; 99284; A9270; Q9967

== ENCOUNTER 2023-10-15 23:52 | Emergency (ER) | payer MEDICAID, SELFPAY ==
--- NOTE | ~2023-10-15 | XR_ITS ---
XR elbow LT min 3V 10/16/2023 00:48 INDICATION: Left elbow pain PROCEDURE: 4 views left elbow COMPARISON: No prior studies for comparison. FINDINGS: Fracture, dislocation or subluxation is not identified. The soft tissues appear within norm al limits. No foreign bodies are identified. IMPRESSION: 1: NO ACUTE BONE OR JOINT ABNORMALITY IDENTIFIED. Reviewed, dictated and finalized at location B.
[2023-10-15 23:55] VITALS: BP 130/98; PULSE 89; RESP 16; TEMP 36.6; O2SAT 98
--- NOTE | 2023-10-16 00:05 | ED.UPPEXIN ---
HPI - Extremity Injury (Upper) General Chief Complaint: Extremity Injury, Upper Stated Complaint: Fall, bruise to left elbow, pain Time Seen by Provider: 10/15/23 23:55 Source: patient Mode of arrival: ambulatory Limitations: no limitations History of Present Illness HPI narrative: Gayle is a 38-year-old female patient presenting to the emergency room with complaints of swelling bruising to the left elbow. She reports she fell on concrete on and injured her left elbow. Does have large cut to the left elbow that scabbed over with localized redness and swelling. Tetanus is up-to-date within the last 5 years. Related Data Home Medications Medication Instructions Recorded Confirmed citalopram 40 mg tablet tablet 10/27/21 darunavir 800 mg tablet (Prezista) tablet 10/27/21 doravirine 100 mg tablet (Pifeltro) tablet PO 10/27/21 ritonavir 100 mg tablet tablet PO 10/27/21 ropinirole 0.5 mg tablet mg 10/27/21 Allergies Allergy/AdvReac Type Severity Reaction Status Date / Time No Known Allergies Allergy Verified 04/15/22 10:40 Review of Systems Review of Systems: Pertinent positives per HPI. Patient denies any fever, chills, rash, headache, visual changes, dizziness, cough, runny nose, sore throat, shortness of breath, chest pain, palpitations, nausea, vomiting, diarrhea, constipation, abdominal pain, or any urinary issues. [facility] Past Medical History Medical History Abscess of hand, right (~06/2019) Due to cat bite. S/P I&D. Asthma HPV test positive Human immunodeficiency virus Diagnosed in 2005. Restless leg syndrome Surgical History Surgical History H/O LEEP Status post section Status post hysterectomy Status post tubal ligation Family History Family History Mother Hypertension Diabetes mellitus Alcoholism Depression Father Alcoholism Hypertension Depression Heart disease Sibling Alcoholism Asthma Grandparent Diabetes mellitus Depression Heart disease Cerebrovascular accident Alcoholism Social History Social History Social History: The patient lives in [place]. Her boyfriend has recently moved in. She has a 9-year-old and 13-year-old at home. She works at [employer], and she was just offered a job at [employer] working as an [employer]. She designates her mother, Bonnie Cantrell, as her surrogate decision maker and she wishes to be a full code. She drinks alcohol about 1 time a week, up to 1 bottle of wine. She Will smokes socially when drinking. She has a history of crack cocaine abuse and has been clean for about 12 years. She denies history of IV drug use. Smoking status: Current every day smoker Alcohol intake: current Substance use: former Living arrangements: with family Gender identity (if verbalized by the patient): Female Sexual Orientation (if Verbalized by the Patient): Straight or Heterosexual Spiritual care concerns: No Agree to blood products: No Comments At the time of my signature, I reviewed and agree with the nursing past medical, surgical, social, and family history. There is no relevant family history pertinent to the patient complaint. Exam Narrative: General: Well-developed, well nourished, in no apparent distress Head: Normocephalic, atraumatic. Cardio: Regular rate and rhythm, s1 and s2 normal, no murmur appreciated. Resp: Clear to auscultation bilaterally, no rhonchi, rales, wheezing or rubs. Musculoskeletal: No deformity, bruising and swelling noted to the left posterior elbow with large scabbed over wound that has localized redness and induration, tender to palpation over this area, grossly normal range of motion, muscle stren
[2023-10-16 02:34] VITALS: BP 132/83; PULSE 84; RESP 16; O2SAT 100
== END 2023-10-16 02:35 | disposition home or self-care (01) ==
LOC: ANHED 10-16 02:27
PROVIDERS: Emergency Provider Nurse Practitioner Family; PCP Physician Assistant
DX: S50.02XA Contusion of left elbow, initial encounter (principal); L08.9 Local infection of the skin and subcutaneous tissue, unspecified; W19.XXXA Unspecified fall, initial encounter; J45.909 Unspecified asthma, uncomplicated; B20 Human immunodeficiency virus [HIV] disease; G25.81 Restless legs syndrome
CPT/HCPCS: 73080; 99283